=== PATIENT | female | born 1955 | race African-American/Black ===

== ENCOUNTER 2018-01-23 08:36 | Inpatient (IN) ==
[2018-01-23 09:27] LABS: Baso # (Auto) 0.1 th/mm3 (0.0-0.2); Baso % (Auto) 1.1 % (0.0-2.0); Eos # (Auto) 0.2 th/mm3 (0.0-0.4); Eos % (Auto) 1.8 % (0.0-4.0); Hematocrit 39.3 % (35.0-46.0); Hemoglobin 12.5 gm/dL (11.6-15.3); Lymph # (Auto) 1.7 th/mm3 (1.0-4.8); Lymph % (Auto) 17.6 % (9.0-44.0); Mean Corpuscular HGB Conc 31.8 % (32.0-36.0); Mean Corpuscular Hemoglobin 24.5 pg (27.0-34.0); Mean Corpuscular Volume 77.1 fL (80.0-100.0); Mean Platelet Volume 8.3 fL (7.0-11.0); Mono # (Auto) 0.7 th/mm3 (0.0-0.9); Mono % (Auto) 7.8 % (0.0-8.0); Neut # (Auto) 6.8 th/mm3 (1.8-7.7); Neut % (Auto) 71.7 % (16.0-70.0); Platelet Count 348 th/mm3 (150-450); Red Cell Distribution Width 14.2 % (11.6-17.2); White Blood Count 9.5 th/mm3 (4.0-11.0)
[2018-01-23 09:39] LABS: Activated Partial Thrombo Time 25.9 sec (24.3-30.1); Prothrombin Time 10.1 sec (9.8-11.6)
--- NOTE | 2018-01-23 09:42 | ED ---
HPI General Chief Complaint: Chest Pain Stated Complaint: Chest pains Time Seen by Provider: 01/23/18 09:18 Source: patient Mode of arrival: ambulatory Limitations: no limitations History of Present Illness HPI narrative: 62-year-old female complained of chest pain. Patient states that the pain started yesterday. Patient states that the pain is sharp pain started on left chest with radiation to left upper back. Patient states that the pain was intermittent and lasted all day yesterday and resolved completely. Patient states that the pain came back this morning. Patient states that the pain is worse today. Patient states that the pain is worse with deep breathing. Patient has mild dry cough. Patient denies any fever chills. Patient denies any injury to left chest. Patient denies history of CAD or pulmonary problem. Patient has history of hypertension was on medication in the past but not now. Patient denies history of diabetes or hyperlipidemia. Patient is ex-smoker. Patient denies family history of heart disease. On a scale of 1-10 the pain is a 9. MD complaint: chest pain Complete Quality Measures for STEMI Alert Patients STEMI Alert: No Onset (ago): day(s) Duration: intermittent Onset: during rest Pain location: left chest Severity: moderate Severity scale (1-10): 9 Quality: sharp Pain radiation: back Exacerbating factors: nothing Treatments prior to arrival chest pain: none Related Data Home Medications Medication Instructions Recorded Confirmed No Known Home Medications 01/23/18 01/23/18 Allergies Allergy/AdvReac Type Severity Reaction Status Date / Time acetaminophen Allergy Severe SHAKES Verified 01/23/18 09:23 hydrocodone Allergy Severe SHAKES Verified 01/23/18 09:23 Review of Systems Except as stated in HPI: all other systems reviewed are negative PMFSH Medical History Medical History H/O: hysterectomy (Acute) HTN (hypertension) (Acute) Surgical History Surgical History History of tonsillectomy (Acute) Social History Social History Substance History: No History of Abuse Smoking Status: Former smoker How Often Do You Have a Drink Containing Alcohol: Monthly or less Recent Travel in [facility] within the Last 8 Weeks: No Recent Out of Country Travel within the Last 8 Weeks: No Immunization History Tetanus Immunization: Unsure Hx Influenza Vaccine This Season: No Exam Narrative Exam Narrative: GENERAL: Well-nourished, well-developed patient. SKIN: Focused skin assessment warm/dry. HEAD: Normocephalic. EYES: No scleral icterus. No injection or drainage. NECK: Supple, trachea midline. No JVD or lymphadenopathy. CARDIOVASCULAR: Regular rate and rhythm without murmurs, gallops, or rubs. Patient has reproducible left anterior chest wall pain on palpation. No redness no heat no rash noted. RESPIRATORY: Breath sounds equal bilaterally. No accessory muscle use. GASTROINTESTINAL: Abdomen soft, non-tender, nondistended. MUSCULOSKELETAL: No cyanosis, or edema. BACK: Nontender without obvious deformity. No CVA tenderness. Neurologic exam normal. Course Initial Documented Vital Signs Temperature 97.9 F 01/23/18 08:39 Pulse Rate 89 01/23/18 08:39 Respiratory Rate 17 01/23/18 08:39 Blood Pressure 236/114 H 01/23/18 08:39 Pulse Oximetry 100 01/23/18 08:39 Last Documented Vital Signs Temperature 97.9 F 01/23/18 08:39 Pulse Rate 77 01/23/18 11:04 Respiratory Rate 18 01/23/18 11:04 Blood Pressure 239/113 H 01/23/18 11:04 Pulse Oximetry 99 01/23/18 11:04 Medical Decision Making MDM Narrative Medical decision making narrative: 62-year-old female with left-sided chest pain. Atypical chest pain. Sharp stabbing pain with radiation to the back. Differential Diagnosis Differential Diagnosis: Differential diagnosis including musculoskeletal, angina , MS, PE, pneumothorax. Lab Data Lab results reviewed: Yes I reviewed the patient's lab results. Result diagrams: 01/23/18 09:00 01/23/18 09:00 Lab Results 01/23/18 01/23/18 01/23/18 Range/Units 09:00 09:00 09:00 WBC 9.5 (4.0-11.0) th/mm3 RBC 5.10 (4.00-5.30) mil/mm3 Hgb 12.5 (11.6-15.3) gm/dL Hct 39.3 (35.0-46.0) % MCV 77.1 L (80.0-100.0) fL MCH 24.5 L (27.0-34.0) pg MCHC 31.8 L (32.0-36.0) % RDW 14.2 (11.6-17.2) % Plt Count 348 (150-450) th/mm3 MPV 8.3 (7.0-11.0) fL Neut % (Auto) 71.7 H (16.0-70.0) % Lymph % (Auto) 17.6 (9.0-44.0) % Webb % (Auto) 7.8 (0.0-8.0) % Eos % (Auto) 1.8 (0.0-4.0) % Baso % (Auto) 1.1 (0.0-2.0) % Neut # (Auto) 6.8 (1.8-7.7) th/mm3 Lymph # (Auto) 1.7 (1.0-4.8) th/mm3 Webb # (Auto) 0.7 (0.0-0.9) th/mm3 Eos # (Auto) 0.2 (0.0-0.4) th/mm3 Baso # (Auto) 0.1 (0.0-0.2) th/mm3 WBC Differential . Differential Comment Auto diff final PT 10.1 (9.8-11.6) sec INR 1.0 Ratio APTT 25.9 (24.3-30.1) sec Sodium 142 (136-145) meq/L Potassium 3.3 L (3.5-5.1) meq/L Chloride 107 (98-107) meq/L Carbon Dioxide 25.7 (21.0-32.0) meq/L Anion Gap 9 (5-15) meq/L BUN 10 (7-18) mg/dL Creatinine 0.66 (0.50-1.00) mg/dL Estimated GFR Greater than 89 (>89) mL/min Random Glucose 118 H (74-106) mg/dL Calcium 9.0 (8.5-10.1) mg/dL Troponin I 0.26 H (0.02-0.05) ng/mL Imaging Data Attestation: I personally reviewed and interpreted this imaging study as follows : Radiologist's impression: Chest X-Ray 01/23/18 08:43 CONCLUSION: 1. No acute cardiopulmonary disease. Discharge Plan Discharge Disposition Patient Disposition: 30 Still Patient Discharge Details Diagnosis: Acute non-ST elevation myocardial infarction (NSTEMI), Hypokalemia Physicians Team ED Provider: Reji Abdalla Primary Care Provider: Primary Care Physici,Laurie Rxs /Orders / Referrals /Forms Prescriptions: No Action No Known Home Medications RF: 0 Discharge Instructions Patient Printed Instructions: Chest Pain (ED) Discharge Interventions Interventions: Vital Signs Last Done: 01/23/18 11:04 Status ED Status: With Doctor
[2018-01-23 09:45] LABS: Anion Gap 9 meq/L (5-15); Blood Urea Nitrogen 10 mg/dL (7-18); Carbon Dioxide 25.7 meq/L (21.0-32.0); Chloride 107 meq/L (98-107); Glomerular Filtration Rate Greater Than 89 mL/min (>89); Glucose,Random 118 mg/dL (74-106); Potassium 3.3 meq/L (3.5-5.1); Sodium 142 meq/L (136-145)
[2018-01-23 09:49] LABS: Troponin I 0.26 ng/mL (0.02-0.05)
--- NOTE | 2018-01-23 09:53 | XR ---
EXAM DATE: 01/23/2018 9:48 AM EDT AGE/SEX: 62 years / Female INDICATIONS: Chest pain. CLINICAL DATA: This is the patient's initial encounter. Patient reports that signs and symptoms have been present for 2 days and indicates a pain score of 10/10. MEDICAL/SURGICAL HISTORY: None. None. COMPARISON: [facility] [place], CHEST SINGLE AP, 04/02/2012. . FINDINGS: A single AP view of the chest demonstrates the lungs to be symmetrically aerated without evidence of mass, infiltrate or effusion. The cardiomediastinal contours are unremarkable. Osseous structures a re intact. CONCLUSION: 1. No acute cardiopulmonary disease. Electronically signed by: Flako Love MD 01/23/2018 9:52 AM EDT
[2018-01-23] MEDS ORDERED: Heparin 10,000 UNITS/10 ML Vial (for IV use) IV.PUSH STA (11:21)
[2018-01-23] MEDS ORDERED: Heparin Drip 25,000 UNIT/250 ML BAG IV.CONT PRN (11:21)
[2018-01-23] MEDS: Heparin Drip 25,000 UNIT/250 ML BAG IV.CONT PRN (12:30)
--- NOTE | 2018-01-23 12:40 | P.HPIM ---
History of Present Illness Service: [facility] Hospitalist. Primary Care Physician: No Primary Care Physician Chief Complaint: Chest pain History of Present Illness: 62-year-old female with a medical history significant for hypertension who have not been following with physicians for the past couple of years presented to the hospital with complaints of chest pain. Patient reports the chest pain started around 1 PM yesterday. It has been intermittent since then. This morning she woke up with severe and crushing chest pain which prompted the hospital visit. She also had associated nausea and vomiting this morning after she took an Aleve. She is currently chest pain-free. It is worth noting her blood pressure since arriving to the emergency room has been in the 230s/110's. - Diagnosis (1) Uncontrolled hypertension (2) Acute non-ST elevation myocardial infarction (NSTEMI) (3) Hypokalemia Inpatient Certification: I certify that the inpatient services were ordered in accordance with Medicare regulations governing the order. This includes certification that hospital inpatient services are reasonable and necessary and in the case of services not specified as inpatient-only under 42 CFR 419.22(n), that they are appropriately provided as inpatient services in accordance to with the 2-midnight benchmark under 43 CFR 412.3(e) Estimated Total Length of Stay (Days): 2 Plans for Post Hospital Care: Home Review of Systems All other systems reviewed negative except as stated in HPI Cardiovascular: Reports chest pain, Denies fast heart rate, Denies irregular heart rhythm, Denies lightheadedness Respiratory: Denies shortness of breath PMFSH - History History Provided By: Patient - Medical History Medical History: Medical History (Last Reviewed 01/23/18 @ 13:21 by Janel Villatoro MD) H/O: hysterectomy HTN (hypertension) - Surgical History Surgical History: Surgical History (Last Reviewed 01/23/18 @ 13:21 by Janel Villatoro MD) History of tonsillectomy - Family History Family History: Family History (Last Updated 01/23/18 @ 13:22 by Janel Villatoro MD) Mother Family history of hypertension - Tobacco History Smoking Status: Former smoker - Alcohol History How Often Do You Have a Drink Containing Alcohol: Monthly or less - Substance Use History Substance History: No History of Abuse - Travel History Recent Travel in the [place] Within the Last 8 Weeks: No Recent Travel Out of the Country Within the Last 8 Weeks: No - Immunization History Tetanus Immunization: Unsure Hx Influenza Vaccine This Season: No Medications and Allergies Active Medications: Active Medications Clonidine HCl (Catapres) 0.1 mg PO Q6H PRN PRN Reason: SEE LABEL COMMENTS Heparin Sodium/Dextrose (Heparin/D5w 25,000 U/250 Ml) 25,000 unit in 250 mls @ 12 mls/hr IV.CONT TITRATE PRN; Protocol PRN Reason: Per Protocol Last Admin: 01/23/18 12:30 Dose: 1,200 units/hr, 12 mls/hr Lisinopril (Prinivil) 5 mg PO BID HALINA Metoprolol Tartrate (Lopressor) 25 mg PO BID HALINA Nitroglycerin (Nitrostat Sl) 0.4 mg SL Q5M PRN PRN Reason: CHEST PAIN Sodium Chloride (Ns Inj) 2 ml IV.FLUSH BID HALINA Sodium Chloride (Ns Inj) 2 ml IV.FLUSH UNSCH PRN PRN Reason: FLUSH AFTER USING IV ACCESS Allergies Allergy/AdvReac Type Severity Reaction Status Date / Time acetaminophen Allergy Severe SHAKES Verified 01/23/18 09:23 hydrocodone Allergy Severe SHAKES Verified 01/23/18 09:23 Home Medications Medication Instructions Recorded Confirmed Type No Known Home Medications 01/23/18 01/23/18 History Exam Vital signs: Vital Signs 01/23/18 08:39 01/23/18 08:42 01/23/18 11:04 Temperature 97.9 F Pulse Rate 89 77 Respiratory Rate 17 18 18 Blood Pressure 236/114 H 239/113 H Pulse Oximetry 100 99 Intake & Output 01/22/18 01/23/18 01/23/18 18:59 06:59 18:59 Weight 99.79 kg Narrative: CONSTITUTIONAL/GENERAL: This is an adequately nourished patient, in no apparent distress. Vital signs reviewed SKIN: No jaundice, rashes, or concerning lesions. Not diaphoretic. HEAD: Atraumatic. Normocephalic. EYES: Pupils equal and round and reactive. Extra ocular motions are intact. No scleral icterus. No injection or drainage. ENT: Hearing grossly normal. Nose without drainage. Throat without visible erythema, exudates, masses, or lesions. NECK: Trachea midline. Neck is supple, non-tender. No palpable thyroid enlargement or nodularity. CARDIOVASCULAR: Normal rate and regular rhythm without murmurs, gallops, or rubs. No JVD. Peripheral pulses 2+ and symmetric. RESPIRATORY/CHEST: Symmetric, unlabored respirations. Breath sounds equal and clear to auscultation bilaterally. No wheezes, crackles, rales, or rhonchi. GASTROINTESTINAL: Abdomen soft, non-tender, non-distended. No hepato- splenomegaly, or palpable masses. No guarding. Bowel sounds present. MUSCULOSKELETAL: Extremities without clubbing, cyanosis, or edema. No joint tenderness or effusion noted. No calf tenderness. No mottling or clubbing. NEUROLOGICAL: Awake and alert. Motor and sensory grossly within normal limits. Follows commands. Move all extremities spontaneously. No focal deficits. PSYCHIATRIC: No obvious mood problems. No apparent hallucinations or other psychotic thought process. Results - Labs CBC & Chem 7: 01/23/18 09:00 01/23/18 09:00 Labs: Short CBC 01/23/18 Range/Units 09:00 WBC 9.5 (4.0-11.0) th/mm3 Hgb 12.5 (11.6-15.3) gm/dL Hct 39.3 (35.0-46.0) % Plt Count 348 (150-450) th/mm3 BMP 01/23/18 09:00 Sodium 142 Potassium 3.3 L Chloride 107 Carbon Dioxide 25.7 BUN 10 Creatinine 0.66 Calcium 9.0 Cardiac Enzymes 01/23/18 Range/Units 09:00 Troponin I 0.26 H (0.02-0.05) ng/mL - Imaging Impressions Chest X-Ray 01/23/18 08:43 CONCLUSION: 1. No acute cardiopulmonary disease. Caprini VTE Risk Assessment Caprini VTE Risk Assessment: Moderate/High Risk (score >= 2) Caprini Risk Assessment Model: Point Value = 1 Point Value = 2 Point Value = 3 Point Value = 5 Age 41-60 Minor surgery BMI > 25 kg/m2 Swollen legs Varicose veins or History of unexplained or recurrent spontaneous Oral contraceptives or hormone replacement Sepsis (< 1 month) Serious lung disease, including pneumonia (< 1 month) Abnormal pulmonary function Acute myocardial infarction Congestive heart failure (< 1 month) History of inflammatory bowel disease Medical patient at bed rest Age 61-74 Arthroscopic surgery Major open surgery (> 45 min) Laparoscopic surgery (> 45 min) Malignancy Confined to bed (> 72 hours) Immobilizing plaster cast Central venous access Age >= 75 History of VTE Family history of VTE Factor V Leiden Prothrombin [id number] Lupus anticoagulant Anticardiolipin antibodies Elevated serum homocysteine Heparin-induced thrombocytopenia Other congenital or acquired thrombophilia Stroke (< 1 month) Elective arthroplasty Hip, pelvis, or leg fracture Acute spinal cord injury (< 1 month) Prophylaxis Regimen: Total Risk Factor Score Risk Level Prophylaxis Regimen 0-1 Low Early ambulation 2 Moderate Order ONE of the following: *Sequential Compression Device (SCD) *Heparin 5000 units SQ BID 3-4 Higher Order ONE of the following medications: *Heparin 5000 units SQ TID *Enoxaparin/Lovenox 40 mg SQ daily (WT < 150 kg, CrCl > 30 mL/min) *Enoxaparin/Lovenox 30 mg SQ daily (WT < 150 kg, CrCl > 10-29 mL/min) *Enoxaparin/Lovenox 30 mg SQ BID (WT < 150 kg, CrCl > 30 mL/min) AND/OR *Sequential Compression Device (SCD) 5 or more Highest Order ONE of the following medications: *Heparin 5000 units SQ TID (Preferred with Epidurals) *Enoxaparin/Lovenox 40 mg SQ daily (WT < 150 kg, CrCl > 30 mL/min) *Enoxaparin/Lovenox 30 mg SQ daily (WT < 150 kg, CrCl > 10-29 mL/min) *Enoxaparin/Lovenox 30 mg SQ BID (WT < 150 kg, CrCl > 30 mL/min) AND *Sequential Compression Device (SCD) Assessment and Plan - Assessment (1) Uncontrolled hypertension Code(s): I10 - Essential (primary) hypertension Status: Acute (2) Acute non-ST elevation myocardial infarction (NSTEMI) Code(s): I21.4 - Non-ST elevation (NSTEMI) myocardial infarction Status: Acute (3) Hypokalemia Code(s): E87.6 - Hypokalemia Status: Acute - Plan 62-year-old female with uncontrolled/untreated hypertension present with NSTEMI NSTEMI: - Cardiology on board. KENDALL Cabrera - On heparin drip per protocol - Add beta-florinda and lisinopril. Check lipids - Nitro as needed -Plan for heart catheterization in the morning. Uncontrolled/untreated hypertension: BP 230's/110's in the ED -Started on metoprolol 25 mg twice daily and lisinopril 5 mg twice daily. - Clonidine PRN. Follow trend and adjust as needed. Hypokalemia: -Replace and monitor. Check mag GI prophylaxis: Stool softener PRN constipation. DVT PPx: On Heparin
[2018-01-23] MEDS ORDERED: Metoprolol Tartrate 25 MG Tablet PO SCH (12:45)
--- NOTE | 2018-01-23 13:47 | ECG ---
Date Performed: 01/23/2018 Time Performed: 08:47:48 PTAGE: 62 years EKG: Sinus rhythm MINIMAL VOLTAGE CRITERIA FOR LVH, CONSIDER NORMAL VARIANT BORDERLINE ECG Since the PREVIOUS TRACING , no significant change noted PREVIOUS TRACIN01/29/2013 02.39 DOCTOR: Kobe Peterson Interpretating Date/Time 01/23/2018 13:45:37
--- NOTE | 2018-01-23 14:06 | MB ---
cc: Baltazar Cabrera MD DATE: 01/23/2018 HISTORY OF PRESENT ILLNESS: Sheryl is a very pleasant 62-year-old lady with history of hypertension, who developed chest pain 1 day prior to admission. She said the chest pain was severe. Her blood pressure was severely elevated on admission at 249 systolic. She currently is chest pain free. Denies any fever, chills, cough, GI or bleeding, PND, orthopnea, syncope or dizziness. PAST MEDICAL HISTORY: Per history of present illness. Also has a history of a hysterectomy. ALLERGIES: ACETAMINOPHEN AND HYDROCODONE. SOCIAL HISTORY: She is a former smoker, rarely drinks alcohol. MEDICATIONS IN THE HOSPITAL: 1. Aspirin 325 daily. 2. Clonidine 0.1 every 6 hours p.r.n. 3. Heparin bolus and drip. 4. Lisinopril 5 mg b.i.d. 5. Metoprolol 25 b.i.d. 6. Potassium chloride supplementation. PHYSICAL EXAMINATION: VITAL SIGNS: Initial blood pressure 236/114, currently 241/116; pulse 79, respiratory rate 17, temperature 97.9, saturations 100% on room air. GENERAL: She is alert and oriented x 3, in no acute distress. NECK: Supple. No JVD. No bruit. CARDIOVASCULAR: S1, S2. No murmurs, rubs, gallops. LUNGS: Clear to auscultation bilaterally. ABDOMEN: Soft, nontender, nondistended with positive bowel sounds. EXTREMITIES: No lower extremity edema. DIAGNOSTIC STUDIES: Chest x-ray: No acute cardiopulmonary disease. EKG: Normal sinus rhythm at 80 beats per minute. No ST-T wave changes. Labs: White count 9.5, hemoglobin 12.5, hematocrit 39.3, platelet count 348. INR 1.0. Sodium 142, potassium 3.3, chloride 107, bicarbonate 25.7, BUN 10, creatinine 0.66, glucose 118. Troponin is 0.26. DIAGNOSES: 1. Non-ST elevation myocardial infarction. 2. Hypertension. 3. Hypokalemia. 4. Microcytosis. DISCUSSION: I suspect her troponin elevation is secondary to increased demand from severely elevated blood pressure. We will need to lower her blood pressure cautiously in order to avoid precipitating any cerebrovascular events from shifted cerebral autoregulation curve. I recommended left heart catheterization; however, will need to have her blood pressure controlled prior to proceeding. Discussed with Dr. Villatoro at the bedside with the patient. MD HERMAN Waite/ASTON , 01:46 PM , 01:53 PM
[2018-01-23] MEDS: Lisinopril 5 MG Tablet PO SCH ×2 (14:39→21:02)
[2018-01-23] MEDS: Metoprolol Tartrate 25 MG Tablet PO SCH ×2 (14:40→21:02)
[2018-01-23] MEDS ORDERED: Potassium Chlor 20 mEq Premix 20 MEQ/100 ML PIGGYBACK IV.SIG SCH (15:00)
[2018-01-23 18:30] LABS: Troponin I 0.6 ng/mL (0.02-0.05)
[2018-01-23 21:33] LABS: Troponin I 0.87 ng/mL (0.02-0.05)
[2018-01-24] MEDS: Heparin Drip 25,000 UNIT/250 ML BAG IV.CONT PRN (00:15)
[2018-01-24 01:23] LABS: Troponin I 0.51 ng/mL (0.02-0.05)
[2018-01-24 07:34] LABS: Anion Gap 9 meq/L (5-15); Blood Urea Nitrogen 13 mg/dL (7-18); Calcium 8.8 mg/dL (8.5-10.1); Carbon Dioxide 25.8 meq/L (21.0-32.0); Chloride 108 meq/L (98-107); Glomerular Filtration Rate Greater Than 89 mL/min (>89); Glucose,Random 84 mg/dL (74-106); Potassium 3.5 meq/L (3.5-5.1); Sodium 143 meq/L (136-145)
[2018-01-24 07:35] LABS: Cholesterol 122 mg/dL (120-200); Triglycerides 86 mg/dL (42-150)
[2018-01-24 07:37] LABS: Chol/HDL Ratio 2.55 Ratio; HDL Cholesterol 47.8 mg/dL (40.0-60.0); LDL Cholesterol,Calculated 57 mg/dL (0-99)
--- NOTE | 2018-01-24 08:36 | ECG ---
Date Performed: 01/24/2018 Time Performed: 00:06:44 PTAGE: 62 years EKG: Sinus rhythm Normal ECG PREVIOUS TRACING : 01/23/2018 16.35 No significant change from previous tracing noted. DOCTOR: Anirudh Conde Interpretating Date/Time 01/24/2018 08:35:31
[2018-01-24] MEDS: Metoprolol Tartrate 25 MG Tablet PO SCH ×2 (08:42→21:15)
[2018-01-24] MEDS: Lisinopril 5 MG Tablet PO SCH ×2 (08:42→21:15)
--- NOTE | 2018-01-24 08:49 | ECG ---
Date Performed: 01/23/2018 Time Performed: 16:35:41 PTAGE: 62 years EKG: SINUS BRADYCARDIA VOLTAGE CRITERIA FOR LVH ABNORMAL ECG PREVIOUS TRACING : 01/23/2018 08.47 No significant change from previous tracing noted. DOCTOR: Anirudh Conde Interpretating Date/Time 01/24/2018 08:47:15
[2018-01-24] MEDS ORDERED: Aspirin 325 MG Tablet PO SCH (09:00)
[2018-01-24] MEDS ORDERED: Heparin/NS PF Inj 1,000 ML ONE (09:36)
[2018-01-24] MEDS ORDERED: fentaNYL Citrate Inj 100 MCG/2 ML Ampul ONE (09:52)
--- NOTE | 2018-01-24 10:26 | CATHPROC ---
scenios HIS Report Study Information Study Number Admission Scheduled Start Study Start [id number] Jan 23 2018 12:23PM 01/24/2018 Jan 24 2018 9:34AM [place] [facility] Cardiac Catheterization Admit Source Facility Department Other [facility] [employer] Physician and Clinical Staff Initial Baltazar Stephenson Child Day Care Provider Toby Kee,RN Other cathlab, cathlab Recorder Ramakrishna Rendon RCIS(BS) Scrub Brittni Bedolla,RT(R) Procedures Performed Procedure Location (Site) Vessel Name Coronary Angiograms LCA Left Coronary Coronary Angiograms RCA Right Coronary L Heart Cath LV Gram-hand inj. LV LV Ventricle PTCA DIAG2 Mid Left Coronary Stent DIAG2 Mid Left Coronary Wire insertion Fem Art (right) Femoral Art Equipment Time Depalletizer Operator Description Size Mfg Part Number Used/Scraped [id number] 10:01 [employer] CRITICAL CARE WIRE, ASAHI PROWATER 180CM 180CM Used *[id number] TRANSDUCER, TRUWAVE [id number] 09:38 LONGO GONZALES * Used W/STOCKCOCK *[id number] 538-420 *[id number] 538-421 *[id number] 09:38 [employer],WARM AIR CCL * Used *[id number] 09:38 [employer] I[employer] PACK, CCL CUSTOM * Used *[id number] 09:38 [employer] PACER PEN, SKIN DUAL W/ RULER * Used *[id number] 10:05 [employer] BALLOON, 2.0 X 6MM EUPHORA 6MM Used *[id number] 10:12 [employer] STENT, 2.5 8 INTEGRITY 2.5 8 Used *[id number] 10:03 [employer]/AVE EBU 3.5 Z2 GUIDE CATHETER FR 6 Used *[id number] 10:03 [employer] MEDICAL 30 NADIA INDEFLATOR Used *[id number] 10:01 [employer] MEDICAL SHEATH, FR6.5 PRELUDE 11CM FR 6.5 038ACT Used *[id number] 09:38 GTRAN WIRE, 3MMJ .035 180CM 180CM Used *[id number] 09:38 NAMIC MANIFOLD, 4 PORT * Used *[id number] 09:38 [employer] OMNIPAQUE, 350 MG, 150ML 150ML [id number] Used [id number] 09:38 [employer] MEDICAL SHEATH, FR4 TERUMO (10CM) FR 4 Used *[id number] History: Current Medications Medication Dosage/Unit Route Frequency Last Date/Time Taken ASA LOPRESSOR History: Allergies Allergy Reaction hydrocodone SHAKES acetaminophen SHAKES History: Risk Factors Hypertension Yes History: Symptoms/Diagnosis Selection Items Chest pain History: Stress Tests Stress or Imaging Studies Performed No History: Other Disease Selection Items HTN History: Other Current Smoker No Labs Hgb (g/dl) Hct (%) WBC (l/cumm) Platelets (thousands) 11.60-17.00 35.00-51.00 4.00-11.00 150.00-450.00 12.5 39.3 9.5 348 Glucose (mg/dl) BUN (mg/dl) Creatinine (mg/dl) BUN:Creatinine (1:x) 74.00-106.00 7.00-18.00 0.50-1.30 10.00-20.00 84 13 0.6 21.7 Na (meq/l) K (meq/l) 136.00-145.00 3.50-5.10 143 3.5 INR (PTT:PT) 0.90-1.10 1 Troponin I (ng/ml) CPK-MB (ng/ML) 0.02-0.05 0.50-3.60 0.51 Not Drawn Medication Medication Total Dose (Bolus/Oral) Medication Total Dosage/Unit 1% XYLOCAINE 20 mL FENTANYL 25 mcg HEPARIN 7600 units PLAVIX 600 mg VERSED 1 mg Medications (Bolus/Oral) Medication Time Given Dosage/Unit Administered By Reason 1% XYLOCAINE 01/24/2018 9:51:29 AM 20 mL cathlab, cathlab 20 mL 1% XYLOCAINE given in lab by cathlab, cathlab in Right Groin via Subcutaneous. Ordered by Baltazar Mayes. VERSED 01/24/2018 9:52:05 AM 1 mg Chilango, Toby 1 mg VERSED given in lab by Toby Kee RN in Left Antecubital via Peripheral IV. Ordered by Baltazar Fuchs. FENTANYL 01/24/2018 9:53:31 AM 25 mcg Chilango, Toby 25 mcg FENTANYL given in lab by Toby Kee RN in Left Antecubital via Peripheral IV. Ordered by Baltazar Rose. HEPARIN 01/24/2018 10:01:29 AM 7600 units Toby Kee 7600 units HEPARIN given in lab by Toby Kee RN in Left Antecubital via Peripheral IV. Ordered by Baltazar Cabrera. PLAVIX 01/24/2018 10:23:06 AM 600 mg Toby Kee 600 mg PLAVIX given in lab by Toby Kee RN via Oral. Ordered by Baltazar Cabrera. Medication (Drip) Medication Time Given Dosage/Unit Concentration/Unit Diluent (ml) Solutio n IV Solutions 01/24/2018 9:34:37 AM 0 mL (IV) 250 NaCl .9 Patient arrived on IV Solutions given by cathlab, cathlab in Left Antecubital via Peripheral IV. Pump /Drip Flow = 20 ml/hr using NaCl .9. Ordered by Baltazar Cabrera. Initial Case Assessment Cardiovascular HR Rhythm NIBP Chest Pain 70 nsr 179/93 0 Edema Present Skin color Skin None Normal Warm Dry Circulatory - Right Pulses Dorsalis Pedis Femoral 1 1 Scale (0,1,2,3,4,d) Circulatory - Left Pulses Dorsalis Pedis Femoral 1 1 Scale (0,1,2,3,4,d) Neurological State Oriented to time-place- Alert Moves all extremities person Respiration - General Respiration Rate SpO2 (%) (B/min) 15 100 Final Case Assessment Cardiovascular HR Rhythm NIBP Chest Pain 62 nsr 168/81 0 Edema Present Skin color Skin None Normal Warm Dry Circulatory - Right Pulses Dorsalis Pedis Femoral 1 1 Scale (0,1,2,3,4,d) Circulatory - Left Pulses Dorsalis Pedis Femoral 1 1 Scale (0,1,2,3,4,d) Neurological State Oriented to time-place- Alert Moves all extremities person Respiration - General Respiration Rate SpO2 (%) (B/min) 15 100 Chronological Log Time Study Chronological Log 9:34:21 Patient arrived via Bed. 9:34:21 Patient Name, D.O.B, / Armband Verified By R.N. 9:34:22 Consent signed by the physician and the patient and verified by the [employer] staff. 9:34:22 Pre-op and post- op instructions given; patient acknowledges understanding of instructions. 9:34:29 Presedation assessment performed by [employer] RN. 9:34:32 Patient has been NPO for Less than 6Hrs. 9:34:33 Skin Breakdown- NONE PER PATIENT 9:34:34 Patient Warmer Placed on the Table. 9:34:35 Kassidy Prominences Protected 9:34:37 A # 20 IV was noted in the Antecubital (left). Grade = 0 Patient arrived on IV Solutions given by cathlab, cathlab in Left Antecubital via Peripheral IV . Pump/Drip Flow = 20 9:34:37 ml/hr using NaCl .9. Ordered by Baltazar Cabrera. 9:35:00 History and physical on the chart or being dictated. Vitals capture started with the following parameters, Patient=Adult, Interval=5 min, Initial Pr ywpuqx=683 mmHg, 9:36:32 Deflation Rate=5 mmHg, Cuff placed on Left Arm 9:38:29 HR=66 bpm, CXSY=426/93 mmhg, XmG2=500.0 %, Resp=15 B/min, Pain=0, Guerita=10, Power=2 9:39:09 History and physical on the chart or being dictated. 9:39:42 Reference ECG taken Assessment: Initial Case, HR=70 BPM, Rhythm=nsr, VMFA=159/93 mmhg, Chest Pain=0, Edema=None, [place]=Normal, Skin = Warm, Dry Right Pulses: Kayden Ped=1, Femoral=1 9:41:06 Left Pulses: Kayden Ped=1, Femoral=1 Neurological: State=Alert, Ox3, WALL Respiration: Resp=15 B/min, FaB7=272 % 9:42:15 Bilateral groins prepped with 2% chlorhexidine, and draped after a 3 minute waiting time. 9:42:29 HR=70 bpm, VTTE=635/94 mmhg, SpO2=98.0 %, Pain=0, Guerita=10, Power=2 9:47:20 MD paged 9:47:30 HR=65 bpm, CHMQ=191/83 mmhg, SmC8=451.0 %, Resp=14 B/min, Pain=0, Guerita=10, Power=2 9:47:57 Pressure channel 1 zeroed. 9:48:35 MD arrived. 9:48:46 Contrast Scanned 9:48:48 Immediate Presedation assesment performed by physician. Time Out. Correct patient, correct procedure, correct physician, labs, allergies, and equipment verified with labor and delivery nurse 9:51:21 team present. Fire risk assesment completed (see hard stop sheet for coding). Time Out Concu rred by MD and individual staff in procedure. 9::29 Case Start 9::29 20 mL 1% XYLOCAINE given in lab by jennifer rodriguez in Right Groin via Subcutaneous. Ordered by Baltazar Cabrera. 9:52:05 1 mg VERSED given in lab by Toby Kee, RN in Left Antecubital via Peripheral IV. Ordered by Baltazar Cabrera. 9:52:17 Access site was Right Femoral Artery. 9:52:22 A SHEATH, FR4 TERUMO (10CM) FR 4 was advanced into the Fem Art (right) using the Percutaneou s technique. 9:52:29 HR=62 bpm, DRSV=552/89 mmhg, FzP4=418.0 %, Resp=14 B/min, Pain=0, Guerita=10, Power=2 9:53:04 Activated Clotting Time Drawn A JR 4.0 INFINITI CATHETER FR 4 was advanced over a wire. OMNIPAQUE, 350 MG, 150ML 150ML was us ed for 9:53:10 injections. 9:53:31 25 mcg FENTANYL given in lab by Toby Kee, RN in Left Antecubital via Peripheral IV. Orde red by Baltazar Cabrera. 9:55:20 The LV was manually injected with 10 cc's and visualized. OMNIPAQUE, 350 MG, 150ML 150ML use d. 9:56:15 Pressure channel 1 zeroed. Recorded Pressure: Ao, HR=69, Condition=Condition 1 9:56:30 (Aorta) Ao 164/76/112 9:56:51 The RCA was injected and visualized at various angles. OMNIPAQUE, 350 MG, 150ML 150ML used. 9:57:31 Catheter was removed 9:57:32 HR=71 bpm, NSFQ=048/77 mmhg, SpO2=97.0 %, Resp=14 B/min, Pain=0, Guerita=10, Power=2 A JL 4.0 INFINITI CATHETER FR 4 was advanced over a wire. OMNIPAQUE, 350 MG, 150ML 150ML was us ed for 9:58:12 injections. 9:58:49 The LCA was injected and visualized at various angles. OMNIPAQUE, 350 MG, 150ML 150ML used. 9:59:44 Catheter was removed 7600 units HEPARIN given in lab by Toby Kee, RN in Left Antecubital via Peripheral IV. Orde red by Rick, 10:01:29 Baltazar. A SHEATH, FR6.5 PRELUDE 11CM FR 6.5 was exchanged in the Fem Art (right). This was necessary in order to 10:02:26 accomodate a larger catheter. 10:03:22 HR=64 bpm, JACF=103/75 mmhg, SpO2=98.0 %, Resp=15 B/min, Pain=0, Guerita=10, Power=2 A EBU 3.5 Z2 GUIDE CATHETER FR 6 was advanced over a wire. OMNIPAQUE, 350 MG, 150ML 150ML was u sed for 10:04:25 injections. 10:04:33 A WIRE, ASAHI PROWATER 180CM 180CM was inserted via Fem Art (right). 10:06:57 Interventional wire has crossed the lesion 10:07:30 HR=66 bpm, AEEY=941/76 mmhg, SpO2=98.0 %, Resp=14 B/min, Pain=0, Guerita=10, Power=2 10:07:58 Activated Clotting Time Drawn A BALLOON, 2.0 X 6MM EUPHORA 6MM was inserted over WIRE, ASAHI PROWATER 180CM 180CM via the Fem Art 10:09:01 (right). A BALLOON, 2.0 X 6MM EUPHORA 6MM over a WIRE, ASAHI PROWATER 180CM 180CM in the DIAG2 Mid was i nflated 10:09:13 using a 30 NADIA INDEFLATOR at 8 nadia for 20 sec. A BALLOON, 2.0 X 6MM EUPHORA 6MM over a WIRE, ASAHI PROWATER 180CM 180CM in the DIAG2 Mid was i nflated 10:09:28 using a 30 NADIA INDEFLATOR at 8 nadia for 20 sec. A BALLOON, 2.0 X 6MM EUPHORA 6MM over a WIRE, ASAHI PROWATER 180CM 180CM in the DIAG2 Mid was i nflated 10:10:11 using a 30 NADIA INDEFLATOR at 10 nadia for 20 sec. A BALLOON, 2.0 X 6MM EUPHORA 6MM over a WIRE, ASAHI PROWATER 180CM 180CM in the DIAG2 Mid was i nflated 10:11:10 using a 30 NADIA INDEFLATOR at 10 nadia for 15 sec. 10:11:51 Balloon Removed. An STENT, 2.5 8 INTEGRITY 2.5 8 Bare Metal Stent was inserted through a EBU 3.5 Z2 GUIDE CATHET ER FR 6 over a 10:12:56 WIRE, ASAHI PROWATER 180CM 180CM. 10:13:18 ACT (Normal Range 90-180) = 278 10:13:23 HR=64 bpm, TJYR=437/81 mmhg, SpO2=98.0 %, Resp=15 B/min, Pain=0, Guerita=10, Power=2 A STENT, 2.5 8 INTEGRITY 2.5 8 was deployed using a 30 NADIA INDEFLATOR at 12 atmospheres for 30 seconds in the 10:14:11 DIAG2 Mid. 10:15:24 Delivery device removed 10:15:28 Wire removed 10:15:38 Catheter was removed 10:15:41 Case End (Physician broke scrub) Assessment: Final Case, HR=62 BPM, Rhythm=nsr, CWRC=124/81 mmhg, Chest Pain=0, Edema=None, [place] r=Normal, Skin = Warm, Dry Right Pulses: Kayden Ped=1, Femoral=1 10:15:48 Left Pulses: Kayden Ped=1, Femoral=1 Neurological: State=Alert, Ox3, WALL Respiration: Resp=15 B/min, RbQ2=170 % 10:16:51 In the Fem Art (right) the SHEATH, FR6.5 PRELUDE 11CM FR 6.[address] by Brittni Bedolla RT(R). 10:17:02 Sterile dressing applied to site 10:17:03 No case complications noted. 10:17:04 Cine recording checked. 10:17:24 Bedside Report will be given. 10:17:26 Implantable Device card placed in patient's chart. 10:17:29 A Left Heart Cath was performed. 10:17:34 HR=60 bpm, HVPN=159/81 mmhg, SpO2=99.0 %, Pain=0, Guerita=10, Power=2 10:21:26 Vitals capture stopped. 10:23:06 600 mg PLAVIX given in lab by Toby Kee RN via Oral. Ordered by Baltazar Cabrera. 10:24:55 Patient moved to [facility] [place] End Study - Contrast Media Used In Study Contrast Total Opened (mL) Total Used (mL) Total Wasted (mL) Omnipaque 100 100 0 End Study - Maximum Contrast Load Max Contrast Load (mL) 904.2 End Study - Radiation Exposure Fluoro Time (minutes) 6.8 End Study - Patient Disposition Complications Transferred To Interventional Outcome No Telemetry Bed successful
[2018-01-24] MEDS ORDERED: Misc Info for Pharmacy OTHER STA (10:29)
[2018-01-24] MEDS ORDERED: Iohexol 350 MG/ML 100 ML Vial (for Cath Lab) IVCONTRAST ONE (10:44)
--- NOTE | 2018-01-24 10:46 | MA ---
cc: Baltazar Cabrera MD DATE: 01/24/2018 PROCEDURE: Left heart catheterization, left ventriculography, coronary angiography and PCI with bare metal stent of the mid first diagonal artery. INDICATIONS FOR PROCEDURE: Non-STEMI, coronary artery disease. PROCEDURE: The patient was brought to the cardiac catheterization laboratory, prepped and draped in the usual sterile fashion. 10 mL of 1% lidocaine was used to locally anesthetize the right common femoral artery. A 4-Lebanese sheath was placed in the right common femoral artery. 4-Lebanese JR4 and JL4 catheters were used to perform left and right coronary angiography, left ventriculography. FINDINGS: LV pressures were not obtained as the pressure waveforms were dampened due to obstructed line off the table. The patient had frequent ectopy, so we did left ventriculography and removed the catheter. EF was approximately 55%. The right coronary artery is dominant, has mild disease in the mid-segment up to 20% angiographically. Also, 10-20% disease in the proximal segment. The left main coronary artery is large, probably a 6 mm reference vessel diameter. No significant disease angiographically. Left circumflex vessel has no significant disease angiographically. There is a high obtuse marginal vessel which is a 2.5 mm vessel with no significant obstructive disease. The second obtuse marginal vessel is a 3.5 mm vessel; it comes off the mid to distal AV groove-left circumflex, very tortuous in the mid to distal segment. No significant disease angiographically. The remainder of the AV groove-left circumflex supplies two small distal posterolateral arteries, which are 1 mm vessels with no significant disease angiographically. The LAD is transapical. There is a 40-50% stenosis in the mid-segment. The first diagonal artery is a medium-sized vessel, which has a 95% mid-stenosis. Reference vessel diameter proximally is 3 mm. At the lesion site, it is approximately 2.5 mm. A 6-Lebanese sheath was exchanged for a 4-Lebanese sheath. The patient's baseline ACT was 143. We gave her 70 units/kg of heparin with an ACT of 273. Used a 6-Lebanese XB 3.5 guide, 0.014 Prowater wire to cross the lesion, predilated the lesion with a 2.0/6 Euphora balloon to 3 inflations of up to 8 atmospheres up to 20 seconds. I then deployed a 2.5/8 Integrity stent at the lesion site, 1 inflation at 12 atmospheres for 20 seconds. Note: There was slight under deployment of the distal segment of the stent at 12 atmospheres. I did not feel comfortable further deploying the stent as at that segment of the vessel, the 2.5 stent was slightly oversized. Stenosis went from 95% to 0% with JOSESITO 3 flow. CONCLUSIONS: 1. [id number]-lskrrbray myocardial infarction, culprit 95% mid-first diagonal artery stenosis, as detailed above. Otherwise mild to moderate three-vessel coronary artery disease in a right dominant system. 2. Normal left ventricular systolic function, ejection fraction 55%. 3. Recommend aspirin 162 mg daily, Plavix 600 mg p.o. load, then 75 mg a day for 12-15 months. Treat lipids to NCEP guidelines. Beta florinda and ABHAY inhibitors as clinically tolerated. MD HERMAN Waite/YAMILA , 10:23 AM , 10:32 AM
[2018-01-24] MEDS ORDERED: Heparin 10,000 UNITS/10 ML Vial (for IV use) ONE (11:01)
[2018-01-24 11:19] LABS: Baso # (Auto) 0.1 th/mm3 (0.0-0.2); Baso % (Auto) 1.1 % (0.0-2.0); Eos # (Auto) 0.3 th/mm3 (0.0-0.4); Eos % (Auto) 4.1 % (0.0-4.0); Hematocrit 33.7 % (35.0-46.0); Hemoglobin 10.7 gm/dL (11.6-15.3); Lymph # (Auto) 2.1 th/mm3 (1.0-4.8); Lymph % (Auto) 26.6 % (9.0-44.0); Mean Corpuscular HGB Conc 31.8 % (32.0-36.0); Mean Corpuscular Hemoglobin 24.5 pg (27.0-34.0); Mean Corpuscular Volume 77.2 fL (80.0-100.0); Mean Platelet Volume 8.5 fL (7.0-11.0); Mono # (Auto) 0.7 th/mm3 (0.0-0.9); Mono % (Auto) 9.1 % (0.0-8.0); Neut # (Auto) 4.6 th/mm3 (1.8-7.7); Neut % (Auto) 59.1 % (16.0-70.0); Platelet Count 310 th/mm3 (150-450); Red Blood Count 4.37 mil/mm3 (4.00-5.30); Red Cell Distribution Width 13.4 % (11.6-17.2); White Blood Count 7.7 th/mm3 (4.0-11.0)
[2018-01-24 11:40] LABS: Anion Gap 9 meq/L (5-15); Aspartate Aminotransferase 25 U/L (15-37); Blood Urea Nitrogen 12 mg/dL (7-18); Calcium 8.5 mg/dL (8.5-10.1); Carbon Dioxide 23.6 meq/L (21.0-32.0); Chloride 107 meq/L (98-107); Glomerular Filtration Rate Greater Than 89 mL/min (>89); Glucose,Random 83 mg/dL (74-106); Magnesium 1.6 mg/dL (1.5-2.5); Potassium 3.3 meq/L (3.5-5.1); Sodium 140 meq/L (136-145)
[2018-01-24 11:41] LABS: Alanine Aminotransferase 21 U/L (10-53); Phosphorus 3.3 mg/dL (2.5-4.9)
[2018-01-24 11:43] LABS: Alkaline Phosphatase 56 U/L (45-117); Total Protein 6.2 g/dL (6.4-8.2)
--- NOTE | 2018-01-24 14:29 | P.PNIM ---
Subjective Interval history: 62-year-old female with a medical history significant for hypertension who have not been following with physicians for the past couple of years presented to the hospital with complaints of chest pain. Patient reports the chest pain started around 1 PM yesterday. It has been intermittent since then. This morning she woke up with severe and crushing chest pain which prompted the hospital visit. She also had associated nausea and vomiting this morning after she took an Aleve. She is currently chest pain-free. It is worth noting her blood pressure since arriving to the emergency room has been in the 230s/110's. 8-3 had cardiac catheterization with Dr. Cabrera had a bare-metal stent placed today We will get a.m. labs We will need to go home on aspirin and Plavix and statin We will need to get her blood pressure under better control Physical Exam Vital signs: Vital Signs 01/23/18 15:18 01/23/18 16:00 01/23/18 18:29 Temperature Pulse Rate 78 78 78 Respiratory Rate 16 17 17 Blood Pressure 217/102 H 191/92 H 151/80 H Pulse Oximetry 98 98 97 01/23/18 20:24 01/23/18 20:44 01/23/18 21:00 Temperature Pulse Rate 62 70 Respiratory Rate 16 18 Blood Pressure 140/78 140/71 174/90 H Pulse Oximetry 100 01/23/18 22:00 01/23/18 23:00 01/24/18 00:00 Temperature Pulse Rate 66 62 64 Respiratory Rate 16 Blood Pressure 134/77 Pulse Oximetry 100 01/24/18 01:00 01/24/18 02:00 01/24/18 02:09 Temperature Pulse Rate 62 64 Respiratory Rate 18 Blood Pressure Pulse Oximetry 01/24/18 03:00 01/24/18 04:00 01/24/18 07:00 Temperature Pulse Rate 64 65 77 Respiratory Rate 16 Blood Pressure 148/80 H Pulse Oximetry 100 01/24/18 08:00 01/24/18 11:00 01/24/18 12:00 Temperature 98.1 F 98.0 F Pulse Rate 85 65 63 Respiratory Rate 18 16 Blood Pressure 146/85 H 176/79 H Pulse Oximetry 100 98 01/24/18 13:00 01/24/18 14:00 Temperature Pulse Rate 76 79 Respiratory Rate Blood Pressure Pulse Oximetry Intake & Output 01/23/18 01/24/18 01/24/18 18:59 06:59 18:59 Intake Total 490 / 490 255 / 255 Output Total 200 / 200 Balance 290 / 290 255 / 255 Weight 99.79 kg 108.5 kg Intake: IV 250 / 250 255 / 255 Heparin/NS PF Inj 1,000 ML @ 0 5 / 5 mls/hr .ROUTE .STK-MED ONE Rx#: [id number] Heparin/D5W 25,000 U/250 mL 25, 250 / 250 250 / 250 000 unit In 250 ml @ 1,200 UNITS/HR 12 mls/hr IV.CONT TITRATE PRN Rx#:[id number] Oral 240 / 240 Output: Urine 200 / 200 Other: Date of Last Bowel Movement 01/23/18 01/23/18 # Bowel Movements 1 Narrative: GENERAL: Awake alert and oriented times 3 --talkative and cooperative SKIN: Warm and dry. HEAD: Atraumatic. Normocephalic. EYES: Pupils equal and round. No scleral icterus. No injection or drainage. ENT: No nasal bleeding or discharge. Mucous membranes pink and moist. NECK: Trachea midline. No JVD. CARDIOVASCULAR: Regular rate and rhythm. S1-S2 no S3 or S4 RESPIRATORY: No accessory muscle use. Clear to auscultation. Breath sounds equal bilaterally. GASTROINTESTINAL: Abdomen soft, non-tender, nondistended. Hepatic and splenic margins not palpable. Obese MUSCULOSKELETAL: Extremities without clubbing, cyanosis, or edema. No obvious deformities. NEUROLOGICAL: Awake and alert. No obvious cranial nerve deficits. Motor grossly within normal limits. Five out of 5 muscle strength in the arms and legs. Normal speech. PSYCHIATRIC: Appropriate mood and affect; insight and judgment normal. Results - Labs CBC & Chem 7: 01/24/18 10:10 01/24/18 10:10 Laboratory Results - last 24 hr 01/23/18 01/23/18 01/23/18 09:00 15:45 18:30 WBC RBC Hgb Hct MCV MCH MCHC RDW Plt Count MPV Neut % (Auto) Lymph % (Auto) [place] % (Auto) Eos % (Auto) Baso % (Auto) Neut # (Auto) Lymph # (Auto) [place] # (Auto) Eos # (Auto) Baso # (Auto) WBC Differential Differential Comment APTT 128.4 H* D Sodium Potassium Chloride Carbon Dioxide Anion Gap BUN Creatinine Estimated GFR Random Glucose Calcium Phosphorus Magnesium 1.6 Total Bilirubin AST ALT Alkaline Phosphatase Total Creatine Kinase 92 Troponin I 0.60 H D Total Protein Albumin Triglycerides Cholesterol LDL Cholesterol, Calc HDL Cholesterol Cholesterol/HDL Ratio TSH Free T4 01/23/18 01/23/18 01/24/18 19:56 22:20 00:43 WBC RBC Hgb Hct MCV MCH MCHC RDW Plt Count MPV Neut % (Auto) Lymph % (Auto) [place] % (Auto) Eos % (Auto) Baso % (Auto) Neut # (Auto) Lymph # (Auto) [place] # (Auto) Eos # (Auto) Baso # (Auto) WBC Differential Differential Comment APTT 26.6 D Sodium Potassium Chloride Carbon Dioxide Anion Gap BUN Creatinine Estimated GFR Random Glucose Calcium Phosphorus Magnesium Total Bilirubin AST ALT Alkaline Phosphatase Total Creatine Kinase 62 58 Troponin I 0.87 H* D 0.51 H D Total Protein Albumin Triglycerides Cholesterol LDL Cholesterol, Calc HDL Cholesterol Cholesterol/HDL Ratio TSH Free T4 01/24/18 01/24/18 01/24/18 05:50 09:09 10:10 WBC 7.7 RBC 4.37 Hgb 10.7 L Hct 33.7 L MCV 77.2 L MCH 24.5 L MCHC 31.8 L RDW 13.4 Plt Count 310 MPV 8.5 Neut % (Auto) 59.1 Lymph % (Auto) 26.6 [place] % (Auto) 9.1 H Eos % (Auto) 4.1 H Baso % (Auto) 1.1 Neut # (Auto) 4.6 Lymph # (Auto) 2.1 [place] # (Auto) 0.7 Eos # (Auto) 0.3 Baso # (Auto) 0.1 WBC Differential . Differential Comment Auto diff final APTT 40.7 H D Sodium 143 Potassium 3.5 Chloride 108 H Carbon Dioxide 25.8 Anion Gap 9 BUN 13 Creatinine 0.68 Estimated GFR Greater than 89 Random Glucose 84 Calcium 8.8 Phosphorus Magnesium Total Bilirubin AST ALT Alkaline Phosphatase Total Creatine Kinase Troponin I Total Protein Albumin Triglycerides 86 Cholesterol 122 LDL Cholesterol, Calc 57 HDL Cholesterol 47.8 Cholesterol/HDL Ratio 2.55 TSH Free T4 01/24/18 01/24/18 01/24/18 10:10 10:10 10:10 WBC RBC Hgb Hct MCV MCH MCHC RDW Plt Count MPV Neut % (Auto) Lymph % (Auto) [place] % (Auto) Eos % (Auto) Baso % (Auto) Neut # (Auto) Lymph # (Auto) [place] # (Auto) Eos # (Auto) Baso # (Auto) WBC Differential Differential Comment APTT Sodium 140 Potassium 3.3 L Chloride 107 Carbon Dioxide 23.6 Anion Gap 9 BUN 12 Creatinine 0.58 Estimated GFR Greater than 89 Random Glucose 83 Calcium 8.5 Phosphorus 3.3 Magnesium 1.6 Total Bilirubin 0.6 AST 25 ALT 21 Alkaline Phosphatase 56 Total Creatine Kinase Troponin I Total Protein 6.2 L Albumin 3.0 L Triglycerides Cholesterol LDL Cholesterol, Calc HDL Cholesterol Cholesterol/HDL Ratio TSH 1.170 Free T4 1.62 H - Imaging Chest X-Ray 01/23/18 08:43 CONCLUSION: 1. No acute cardiopulmonary disease. - Procedures 01/24/2018 PROCEDURE: Left heart catheterization, left ventriculography, coronary angiography and PCI with bare metal stent of the mid first diagonal artery. INDICATIONS FOR PROCEDURE: Non-STEMI, coronary artery disease. PROCEDURE: The patient was brought to the cardiac catheterization laboratory, prepped and draped in the usual sterile fashion. 10 mL of 1% lidocaine was used to locally anesthetize the right common femoral artery. A 4-Congolese sheath was placed in the right common femoral artery. 4-Congolese JR4 and JL4 catheters were used to perform left and right coronary angiography, left ventriculography. FINDINGS: LV pressures were not obtained as the pressure waveforms were dampened due to obstructed line off the table. The patient had frequent ectopy, so we did left ventriculography and removed the catheter. EF was approximately 55%. The right coronary artery is dominant, has mild disease in the mid-segment up to 20% angiographically. Also, 10-20% disease in the proximal segment. The left main coronary artery is large, probably a 6 mm reference vessel diameter. No significant disease angiographically. Left circumflex vessel has no significant disease angiographically. There is a high obtuse marginal vessel which is a 2.5 mm vessel with no significant obstructive disease. The second obtuse marginal vessel is a 3.5 mm vessel; it comes off the mid to distal AV groove-left circumflex, very tortuous in the mid to distal segment. No significant disease angiographically. The remainder of the AV groove-left circumflex supplies two small distal posterolateral arteries, which are 1 mm vessels with no significant disease angiographically. The LAD is transapical. There is a 40-50% stenosis in the mid-segment. The first diagonal artery is a medium-sized vessel, which has a 95% mid-stenosis. Reference vessel diameter proximally is 3 mm. At the lesion site, it is approximately 2.5 mm. A 6-Congolese sheath was exchanged for a 4-Congolese sheath. The patient's baseline ACT was 143. We gave her 70 units/kg of heparin with an ACT of 273. Used a 6-Congolese XB 3.5 guide, 0.014 Prowater wire to cross the lesion, predilated the lesion with a 2.0/6 Euphora balloon to 3 inflations of up to 8 atmospheres up to 20 seconds. I then deployed a 2.5/8 Integrity stent at the lesion site, 1 inflation at 12 atmospheres for 20 seconds. Note: There was slight under deployment of the distal segment of the stent at 12 atmospheres. I did not feel comfortable further deploying the stent as at that segment of the vessel, the 2.5 stent was slightly oversized. Stenosis went from 95% to 0% with JOSESITO 3 flow. CONCLUSIONS: 1. [id number] myocardial infarction, culprit 95% mid-first diagonal artery stenosis, as detailed above. Otherwise mild to moderate three-vessel coronary artery disease in a right dominant system. 2. Normal left ventricular systolic function, ejection fraction 55%. 3. Recommend aspirin 162 mg daily, Plavix 600 mg p.o. load, then 75 mg a day for 12-15 months. Treat lipids to NCEP guidelines. Beta florinda and ABHAY inhibitors as clinically tolerated. Baltazar Cabrera MD Assessment and Plan - Assessment (1) Uncontrolled hypertension Code(s): I10 - Essential (primary) hypertension Status: Acute (2) Acute non-ST elevation myocardial infarction (NSTEMI) Code(s): I21.4 - Non-ST elevation (NSTEMI) myocardial infarction Status: Acute (3) Hypokalemia Code(s): E87.6 - Hypokalemia Status: Acute - Plan 62-year-old female with uncontrolled/untreated hypertension present with NSTEMI NSTEMI: - Cardiology on board. DW Dr. Cabrera - On heparin drip per protocol - Add beta-florinda and lisinopril. Check lipids - Nitro as needed -Plan for heart catheterization in the morning.--Had stenting done on January [address] Cabrera Uncontrolled/untreated hypertension: BP 230's/110's in the ED -Started on metoprolol 25 mg twice daily and lisinopril 5 mg twice daily. - Clonidine PRN. Follow trend and adjust as needed. Follow labs and blood pressures Hypokalemia: -Replace and monitor. Check mag Hypokalemia again will replace Medical noncompliance since patient's blood pressure was uncontrolled Morbid obesity weight loss recommended GI prophylaxis: Stool softener PRN constipation. DVT PPx: On Heparin Code Status: Full code Discussed Condition With: RN and patient and case management Discharge Planning: Hopefully home in the next 24-48 hours if labs are stable
[2018-01-24] MEDS ORDERED: Potassium Chloride 25 MEQ Effervescent Tablet PO ONE (15:00)
[2018-01-24 16:17] LABS: Hemoglobin A1c 4.7 % (4.3-6.0)
[2018-01-24] MEDS: amLODIPine 5 MG Tablet PO SCH (17:40)
--- NOTE | 2018-01-24 17:41 | ECHRPT ---
Indication: HHD CONCLUSIONS The transthoracic study is normal by two-dimensional, color flow imaging and Doppler interrogation. Normal left ventricular size. Mild concentric left ventricular hypertrophy. No regional wall motion abnormalities are present. EF @ 45% Calcification of the anterior mitral valve leaflet. Aortic valve sclerosis is present. There is trace tricuspid valve regurgitation. Normal estimated pulmonary pressures. BP: / HR: Rhythm: Sinus MEASUREMENTS (Male / Female) Normal Values Technical Quality:Poor 2D ECHO LV Diastolic Diameter PLAX 4.9 cm 4.2 - 5.9 / 3.9 - 5.3 cm LV Systolic Diameter PLAX 3.5 cm IVS Diastolic Thickness 1.2 cm 0.6 - 1.0 / 0.6 - 0.9 cm LVPW Diastolic Thickness 1.2 cm 0.6 - 1.0 / 0.6 - 0.9 cm LV Relative Wall Thickness 0.5 RV Internal Dim ED PLAX 2.3 cm LVOT Diameter 1.8 cm LA Systolic Diameter LX 3.3 cm 3.0 - 4.0 / 2.7 - 3.8 cm M-MODE Aortic Root Diameter MM 2.6 cm LA Systolic Diameter MM 3.3 cm LA Ao Ratio MM 1.3 AV Cusp Separation MM 1.9 cm DOPPLER AV Peak Velocity 119.0 cm/s AV Peak Gradient 5.7 mmHg LVOT Peak Velocity 91.8 cm/s LVOT Peak Gradient 3.4 mmHg AV Area Cont Eq pk 2.0 cm MV Area PHT 2.2 cm Mitral E Point Velocity 58.2 cm/s Mitral A Point Velocity 77.5 cm/s Mitral E to A Ratio 0.8 TR Peak Velocity 200.0 cm/s TR Peak Gradient 16.0 mmHg Right Atrial Pressure 10.0 mmHg Pulmonary Artery Systolic Pressu 26.0 mmHg Right Ventricular Systolic Press 26.0 mmHg PV Peak Velocity 93.7 cm/s PV Peak Gradient 3.5 mmHg FINDINGS LEFT VENTRICLE The left ventricular systolic function is normal with an estimated ejection fraction in the range of 60-65%. Normal left ventricular size. Mild concentric left ventricular hypertrophy. No regional wall motion abnormalities are present. RIGHT VENTRICLE Normal right ventricular size and systolic function. LEFT ATRIUM The left atrial size is normal. RIGHT ATRIUM The right atrial size is normal. ATRIAL SEPTUM Normal atrial septal thickness without atrial level shunting by limited color doppler interrogation. AORTA The aortic root and proximal ascending aorta are normal in size on limited imaging. MITRAL VALVE Structurally normal mitral valve. Calcification of the anterior mitral valve leaflet. AORTIC VALVE Trileaflet aortic valve. Aortic valve sclerosis is present. TRICUSPID VALVE Structurally normal tricuspid valve. There is trace tricuspid valve regurgitation. Normal estimated pulmonary pressures. PULMONARY VALVE No pulmonary valve regurgitation or stenosis. VESSELS The inferior vena cava is normal in size. PERICARDIUM No pericardial effusion. Baltazar Cabrera MD, FACC, [facility] [place] (Electronically Signed) Final Date:24 January 2018 17:40
[2018-01-25] MEDS ORDERED: Ibuprofen 400 MG Tablet PO ONE (05:53)
[2018-01-25] MEDS: Metoprolol Tartrate 25 MG Tablet PO SCH ×2 (08:29→21:10)
[2018-01-25] MEDS: amLODIPine 5 MG Tablet PO SCH (08:29)
[2018-01-25] MEDS: Lisinopril 5 MG Tablet PO SCH ×2 (08:30→21:10)
[2018-01-25 09:40] LABS: Baso # (Auto) 0.1 th/mm3 (0.0-0.2); Baso % (Auto) 0.8 % (0.0-2.0); Eos # (Auto) 0.4 th/mm3 (0.0-0.4); Eos % (Auto) 4.7 % (0.0-4.0); Hematocrit 38.1 % (35.0-46.0); Hemoglobin 12.1 gm/dL (11.6-15.3); Lymph % (Auto) 24.3 % (9.0-44.0); Mean Corpuscular HGB Conc 31.9 % (32.0-36.0); Mean Corpuscular Hemoglobin 24.6 pg (27.0-34.0); Mean Corpuscular Volume 77.2 fL (80.0-100.0); Mean Platelet Volume 8.4 fL (7.0-11.0); Mono # (Auto) 0.6 th/mm3 (0.0-0.9); Mono % (Auto) 7.9 % (0.0-8.0); Neut % (Auto) 62.3 % (16.0-70.0); Platelet Count 346 th/mm3 (150-450); Red Blood Count 4.94 mil/mm3 (4.00-5.30)
[2018-01-25 10:07] LABS: Albumin 3.4 g/dL (3.4-5.0); Anion Gap 10 meq/L (5-15); Aspartate Aminotransferase 30 U/L (15-37); Blood Urea Nitrogen 14 mg/dL (7-18); Calcium 9.1 mg/dL (8.5-10.1); Carbon Dioxide 24.9 meq/L (21.0-32.0); Chloride 107 meq/L (98-107); Glomerular Filtration Rate 88 mL/min (>89); Glucose,Random 131 mg/dL (74-106); Magnesium 1.7 mg/dL (1.5-2.5); Potassium 3.7 meq/L (3.5-5.1); Sodium 142 meq/L (136-145)
[2018-01-25 10:09] LABS: Alanine Aminotransferase 29 U/L (10-53); Cholesterol 127 mg/dL (120-200); Phosphorus 2.8 mg/dL (2.5-4.9)
[2018-01-25 10:11] LABS: Alkaline Phosphatase 68 U/L (45-117); Chol/HDL Ratio 2.62 Ratio; HDL Cholesterol 48.4 mg/dL (40.0-60.0); LDL Cholesterol,Calculated 62 mg/dL (0-99); Total Protein 7.5 g/dL (6.4-8.2); Triglycerides 85 mg/dL (42-150)
[2018-01-25] MEDS ORDERED: Loperamide 2 MG Capsule PO PRN (10:56)
--- NOTE | 2018-01-25 11:35 | P.PNIM ---
Subjective Interval history: 62-year-old female with a medical history significant for hypertension who have not been following with physicians for the past couple of years presented to the hospital with complaints of chest pain. Patient reports the chest pain started around 1 PM yesterday. It has been intermittent since then. This morning she woke up with severe and crushing chest pain which prompted the hospital visit. She also had associated nausea and vomiting this morning after she took an Aleve. She is currently chest pain-free. It is worth noting her blood pressure since arriving to the emergency room has been in the 230s/110's. 8-3 had cardiac catheterization with Dr. Cabrera had a bare-metal stent placed today We will get a.m. labs We will need to go home on aspirin and Plavix and statin We will need to get her blood pressure under better control 8-4 PATIENT STILL TAKING NITRO WILL START IMDUR STILL HAVING CHEST PAIN ON AND OFF DW RN AND PT AM LABS HAVING DIARRHEA IMODIUM HOLD DC TODAY MEDS ADJUSTED Physical Exam Vital signs: Vital Signs 01/24/18 12:00 01/24/18 13:00 01/24/18 14:00 Temperature 98.0 F Pulse Rate 63 76 79 Respiratory Rate 16 Blood Pressure 176/79 H Pulse Oximetry 98 01/24/18 16:00 01/24/18 17:00 01/24/18 18:00 Temperature 98.6 F Pulse Rate 75 77 76 Respiratory Rate 17 Blood Pressure 120/72 Pulse Oximetry 97 01/24/18 19:00 01/24/18 20:00 01/24/18 21:00 Temperature 98.5 F Pulse Rate 83 80 84 Respiratory Rate 16 Blood Pressure 150/86 H Pulse Oximetry 100 01/24/18 22:00 01/24/18 23:00 01/25/18 00:00 Temperature 98.1 F Pulse Rate 76 75 86 Respiratory Rate 16 Blood Pressure 134/76 Pulse Oximetry 99 01/25/18 01:00 01/25/18 02:00 01/25/18 03:00 Temperature Pulse Rate 68 70 73 Respiratory Rate Blood Pressure Pulse Oximetry 01/25/18 04:00 01/25/18 05:00 01/25/18 06:00 Temperature 98.0 F Pulse Rate 71 70 64 Respiratory Rate 14 Blood Pressure 150/87 H Pulse Oximetry 99 01/25/18 07:00 01/25/18 08:00 01/25/18 08:45 Temperature 98.0 F Pulse Rate 65 73 Respiratory Rate 18 18 Blood Pressure 154/91 H Pulse Oximetry 98 01/25/18 09:00 01/25/18 10:00 Temperature Pulse Rate 68 67 Respiratory Rate Blood Pressure Pulse Oximetry Intake & Output 01/24/18 01/25/18 01/25/18 18:59 06:59 18:59 Intake Total 495 / 495 240 / 240 Output Total 400 / 400 200 / 200 Balance 95 / 95 40 / 40 Weight 106.5 kg Intake: IV 255 / 255 Heparin/NS PF Inj 1,000 ML @ 0 5 / 5 mls/hr .ROUTE .STK-MED ONE Rx#: [id number] Heparin/D5W 25,000 U/250 mL 25, 250 / 250 000 unit In 250 ml @ 1,200 UNITS/HR 12 mls/hr IV.CONT TITRATE PRN Rx#:[id number] Oral 240 / 240 240 / 240 Output: Urine 400 / 400 200 / 200 Other: Date of Last Bowel Movement 01/23/18 01/23/18 # Bowel Movements 1 Narrative: GENERAL: Awake alert and oriented times 3 --talkative and cooperative SKIN: Warm and dry. HEAD: Atraumatic. Normocephalic. EYES: Pupils equal and round. No scleral icterus. No injection or drainage. ENT: No nasal bleeding or discharge. Mucous membranes pink and moist. NECK: Trachea midline. No JVD. CARDIOVASCULAR: Regular rate and rhythm. S1-S2 no S3 or S4 RESPIRATORY: No accessory muscle use. Clear to auscultation. Breath sounds equal bilaterally. GASTROINTESTINAL: Abdomen soft, non-tender, nondistended. Hepatic and splenic margins not palpable. Obese MUSCULOSKELETAL: Extremities without clubbing, cyanosis, or edema. No obvious deformities. NEUROLOGICAL: Awake and alert. No obvious cranial nerve deficits. Motor grossly within normal limits. Five out of 5 muscle strength in the arms and legs. Normal speech. PSYCHIATRIC: Appropriate mood and affect; insight and judgment normal. Results - Labs CBC & Chem 7: 01/25/18 08:40 01/25/18 08:40 Laboratory Results - last 24 hr 01/24/18 01/24/18 01/24/18 10:10 10:10 10:10 WBC RBC Hgb Hct MCV MCH MCHC RDW Plt Count MPV Neut % (Auto) Lymph % (Auto) [place] % (Auto) Eos % (Auto) Baso % (Auto) Neut # (Auto) Lymph # (Auto) [place] # (Auto) Eos # (Auto) Baso # (Auto) WBC Differential Differential Comment Sodium 140 Potassium 3.3 L Chloride 107 Carbon Dioxide 23.6 Anion Gap 9 BUN 12 Creatinine 0.58 Estimated GFR Greater than 89 Random Glucose 83 Hemoglobin A1c 4.7 Calcium 8.5 Phosphorus 3.3 Magnesium 1.6 Total Bilirubin 0.6 AST 25 ALT 21 Alkaline Phosphatase 56 Total Protein 6.2 L Albumin 3.0 L Triglycerides Cholesterol LDL Cholesterol, Calc HDL Cholesterol Cholesterol/HDL Ratio TSH Free T4 1.62 H 01/24/18 01/25/18 01/25/18 10:10 08:40 08:40 WBC 8.0 RBC 4.94 Hgb 12.1 Hct 38.1 MCV 77.2 L MCH 24.6 L MCHC 31.9 L RDW 14.0 Plt Count 346 MPV 8.4 Neut % (Auto) 62.3 Lymph % (Auto) 24.3 [place] % (Auto) 7.9 Eos % (Auto) 4.7 H Baso % (Auto) 0.8 Neut # (Auto) 5.0 Lymph # (Auto) 2.0 [place] # (Auto) 0.6 Eos # (Auto) 0.4 Baso # (Auto) 0.1 WBC Differential . Differential Comment Auto diff final Sodium 142 Potassium 3.7 Chloride 107 Carbon Dioxide 24.9 Anion Gap 10 BUN 14 Creatinine 0.80 Estimated GFR 88 L Random Glucose 131 H Hemoglobin A1c Calcium 9.1 Phosphorus 2.8 Magnesium 1.7 Total Bilirubin 0.7 AST 30 ALT 29 Alkaline Phosphatase 68 Total Protein 7.5 D Albumin 3.4 Triglycerides 85 Cholesterol 127 LDL Cholesterol, Calc 62 HDL Cholesterol 48.4 Cholesterol/HDL Ratio 2.62 TSH 1.170 Free T4 - Imaging Chest X-Ray 01/23/18 08:43 CONCLUSION: 1. No acute cardiopulmonary disease. - Procedures 01/24/2018 PROCEDURE: Left heart catheterization, left ventriculography, coronary angiography and PCI with bare metal stent of the mid first diagonal artery. INDICATIONS FOR PROCEDURE: Non-STEMI, coronary artery disease. PROCEDURE: The patient was brought to the cardiac catheterization laboratory, prepped and draped in the usual sterile fashion. 10 mL of 1% lidocaine was used to locally anesthetize the right common femoral artery. A 4-Occitan sheath was placed in the right common femoral artery. 4-Occitan JR4 and JL4 catheters were used to perform left and right coronary angiography, left ventriculography. FINDINGS: LV pressures were not obtained as the pressure waveforms were dampened due to obstructed line off the table. The patient had frequent ectopy, so we did left ventriculography and removed the catheter. EF was approximately 55%. The right coronary artery is dominant, has mild disease in the mid-segment up to 20% angiographically. Also, 10-20% disease in the proximal segment. The left main coronary artery is large, probably a 6 mm reference vessel diameter. No significant disease angiographically. Left circumflex vessel has no significant disease angiographically. There is a high obtuse marginal vessel which is a 2.5 mm vessel with no significant obstructive disease. The second obtuse marginal vessel is a 3.5 mm vessel; it comes off the mid to distal AV groove-left circumflex, very tortuous in the mid to distal segment. No significant disease angiographically. The remainder of the AV groove-left circumflex supplies two small distal posterolateral arteries, which are 1 mm vessels with no significant disease angiographically. The LAD is transapical. There is a 40-50% stenosis in the mid-segment. The first diagonal artery is a medium-sized vessel, which has a 95% mid-stenosis. Reference vessel diameter proximally is 3 mm. At the lesion site, it is approximately 2.5 mm. A 6-Occitan sheath was exchanged for a 4-Occitan sheath. The patient's baseline ACT was 143. We gave her 70 units/kg of heparin with an ACT of 273. Used a 6-Occitan XB 3.5 guide, 0.014 Prowater wire to cross the lesion, predilated the lesion with a 2.0/6 Euphora balloon to 3 inflations of up to 8 atmospheres up to 20 seconds. I then deployed a 2.5/8 Integrity stent at the lesion site, 1 inflation at 12 atmospheres for 20 seconds. Note: There was slight under deployment of the distal segment of the stent at 12 atmospheres. I did not feel comfortable further deploying the stent as at that segment of the vessel, the 2.5 stent was slightly oversized. Stenosis went from 95% to 0% with JOSESITO 3 flow. CONCLUSIONS: 1. Ijy-WE-maxsbtnom myocardial infarction, culprit 95% mid-first diagonal artery stenosis, as detailed above. Otherwise mild to moderate three-vessel coronary artery disease in a right dominant system. 2. Normal left ventricular systolic function, ejection fraction 55%. 3. Recommend aspirin 162 mg daily, Plavix 600 mg p.o. load, then 75 mg a day for 12-15 months. Treat lipids to NCEP guidelines. Beta florinda and ABHAY inhibitors as clinically tolerated. Baltazar Cabrera MD Assessment and Plan - Assessment (1) Uncontrolled hypertension Code(s): I10 - Essential (primary) hypertension Status: Acute (2) Acute non-ST elevation myocardial infarction (NSTEMI) Code(s): I21.4 - Non-ST elevation (NSTEMI) myocardial infarction Status: Acute (3) Hypokalemia Code(s): E87.6 - Hypokalemia Status: Acute - Plan 62-year-old female with uncontrolled/untreated hypertension present with NSTEMI NSTEMI: - Cardiology on board. DW Dr. Cabrera - On heparin drip per protocol - Add beta-florinda and lisinopril. Check lipids - Nitro as needed -Plan for heart catheterization in the morning.--Had stenting done on January [address] Cabrera WILL ADD IMDUR Uncontrolled/untreated hypertension: BP 230's/110's in the ED -Started on metoprolol 50 mg twice daily and lisinopril 10 mg twice daily. ADD NORVASC 5MG - Clonidine PRN. Follow trend and adjust as needed. Follow labs and blood pressures Hypokalemia: -Replace and monitor. Check mag Hypokalemia again will replace Medical noncompliance since patient's blood pressure was uncontrolled Morbid obesity weight loss recommended GI prophylaxis: Stool softener PRN constipation. DIARRHEA START IMODIUM DVT PPx: On Heparin Code Status: FULL CODE Discussed Condition With: RN AND PT Discharge Planning: Hopefully home in the next 24-48 hours if labs are stable AND NO MORE CHEST PAIN START IMDUR
[2018-01-25] MEDS: Isosorbide Mononitrate 30 MG ER 24HR Tablet (Imdur) PO SCH (11:48)
--- NOTE | 2018-01-25 13:04 | P.PNCA ---
Subjective Interval history: patient asleep, tells me she doesnt want to go home due to diarrhea, denies chest pain to me but told Dr Luna she had 8/10 chest pain according to nursing Physical Exam Vital signs: Vital Signs 01/24/18 14:00 01/24/18 16:00 01/24/18 17:00 Temperature 98.6 F Pulse Rate 79 75 77 Respiratory Rate 17 Blood Pressure 120/72 Pulse Oximetry 97 01/24/18 18:00 01/24/18 19:00 01/24/18 20:00 Temperature 98.5 F Pulse Rate 76 83 80 Respiratory Rate 16 Blood Pressure 150/86 H Pulse Oximetry 100 01/24/18 21:00 01/24/18 22:00 01/24/18 23:00 Temperature Pulse Rate 84 76 75 Respiratory Rate Blood Pressure Pulse Oximetry 01/25/18 00:00 01/25/18 01:00 01/25/18 02:00 Temperature 98.1 F Pulse Rate 86 68 70 Respiratory Rate 16 Blood Pressure 134/76 Pulse Oximetry 99 01/25/18 03:00 01/25/18 04:00 01/25/18 05:00 Temperature 98.0 F Pulse Rate 73 71 70 Respiratory Rate 14 Blood Pressure 150/87 H Pulse Oximetry 99 01/25/18 06:00 01/25/18 07:00 01/25/18 08:00 Temperature 98.0 F Pulse Rate 64 65 73 Respiratory Rate 18 Blood Pressure 154/91 H Pulse Oximetry 98 01/25/18 08:45 01/25/18 09:00 01/25/18 10:00 Temperature Pulse Rate 68 67 Respiratory Rate 18 Blood Pressure Pulse Oximetry 01/25/18 11:00 01/25/18 12:00 Temperature 98.1 F Pulse Rate 67 67 Respiratory Rate 18 Blood Pressure 136/78 Pulse Oximetry 99 Intake & Output 01/24/18 01/25/18 01/25/18 18:59 06:59 18:59 Intake Total 495 / 495 240 / 240 Output Total 400 / 400 200 / 200 Balance 95 / 95 40 / 40 Weight 106.5 kg Intake: IV 255 / 255 Heparin/NS PF Inj 1,000 ML @ 0 5 / 5 mls/hr .ROUTE .[facility] Rx#: [id number] Heparin/D5W 25,000 U/250 mL 25, 250 / 250 000 unit In 250 ml @ 1,200 UNITS/HR 12 mls/hr IV.CONT TITRATE PRN Rx#:[id number] Oral 240 / 240 240 / 240 Output: Urine 400 / 400 200 / 200 Other: Date of Last Bowel Movement 01/23/18 01/25/18 # Bowel Movements 1 Assessment and Plan - Assessment (1) CAD (coronary artery disease) Code(s): I25.10 - Atherosclerotic heart disease of [place] coronary artery without angina pectoris Status: Acute (2) Acute non-ST elevation myocardial infarction (NSTEMI) Code(s): I21.4 - Non-ST elevation (NSTEMI) myocardial infarction Status: Acute (3) Hypokalemia Code(s): E87.6 - Hypokalemia Status: Acute (4) Uncontrolled hypertension Code(s): I10 - Essential (primary) hypertension Status: Acute - Plan 1.) POD #1 bms d1, reports chest pain, plan imdur and ternd trop and repeat ekg , continue aspirin, plavix, beta florinda and harinder, ldl=57 so statin held
[2018-01-25 13:25] LABS: Troponin I 0.7 ng/mL (0.02-0.05)
--- NOTE | 2018-01-25 13:49 | ECG ---
Date Performed: 01/25/2018 Time Performed: 05:33:50 PTAGE: 62 years EKG: Sinus rhythm Septal and lateral ST-T changes are nonspecific Borderline ECG Since the PREVIOUS TRACING , no significant change noted PREVIOUS TRACIN01/24/2018 00.06 DOCTOR: Olga Aldana Interpretating Date/Time 01/25/2018 13:47:12
[2018-01-25 20:18] LABS: Troponin I 0.55 ng/mL (0.02-0.05)
[2018-01-26 01:28] LABS: Baso # (Auto) 0.1 th/mm3 (0.0-0.2); Baso % (Auto) 0.9 % (0.0-2.0); Eos # (Auto) 0.5 th/mm3 (0.0-0.4); Eos % (Auto) 4.2 % (0.0-4.0); Hematocrit 35.5 % (35.0-46.0); Hemoglobin 11.2 gm/dL (11.6-15.3); Lymph # (Auto) 3.5 th/mm3 (1.0-4.8); Lymph % (Auto) 31.8 % (9.0-44.0); Mean Corpuscular HGB Conc 31.6 % (32.0-36.0); Mean Corpuscular Hemoglobin 24.3 pg (27.0-34.0); Mean Platelet Volume 7.8 fL (7.0-11.0); Mono # (Auto) 1.1 th/mm3 (0.0-0.9); Mono % (Auto) 9.5 % (0.0-8.0); Neut # (Auto) 5.9 th/mm3 (1.8-7.7); Neut % (Auto) 53.6 % (16.0-70.0); Platelet Count 329 th/mm3 (150-450); Red Blood Count 4.61 mil/mm3 (4.00-5.30); Red Cell Distribution Width 13.7 % (11.6-17.2); White Blood Count 11.1 th/mm3 (4.0-11.0)
[2018-01-26 01:48] LABS: Alanine Aminotransferase 28 U/L (10-53); Albumin 3.2 g/dL (3.4-5.0); Anion Gap 9 meq/L (5-15); Aspartate Aminotransferase 24 U/L (15-37); Blood Urea Nitrogen 15 mg/dL (7-18); Calcium 8.8 mg/dL (8.5-10.1); Carbon Dioxide 26.5 meq/L (21.0-32.0); Chloride 110 meq/L (98-107); Glomerular Filtration Rate Greater Than 89 mL/min (>89); Glucose,Random 87 mg/dL (74-106); Magnesium 1.5 mg/dL (1.5-2.5); Phosphorus 3.7 mg/dL (2.5-4.9); Potassium 3.6 meq/L (3.5-5.1); Sodium 145 meq/L (136-145)
[2018-01-26 01:53] LABS: Alkaline Phosphatase 60 U/L (45-117); Total Protein 6.9 g/dL (6.4-8.2); Troponin I 0.49 ng/mL (0.02-0.05)
[2018-01-26 01:54] LABS: Creatine Kinase 36 U/L (26-192)
[2018-01-26] MEDS: Isosorbide Mononitrate 30 MG ER 24HR Tablet (Imdur) PO SCH (06:04)
[2018-01-26] MEDS: amLODIPine 5 MG Tablet PO SCH (08:15)
[2018-01-26] MEDS: Lisinopril 5 MG Tablet PO SCH (08:15)
[2018-01-26] MEDS: Metoprolol Tartrate 25 MG Tablet PO SCH (08:15)
--- NOTE | 2018-01-26 10:28 | P.PNIM ---
Subjective Interval history: 62-year-old female with a medical history significant for hypertension who have not been following with physicians for the past couple of years presented to the hospital with complaints of chest pain. Patient reports the chest pain started around 1 PM yesterday. It has been intermittent since then. This morning she woke up with severe and crushing chest pain which prompted the hospital visit. She also had associated nausea and vomiting this morning after she took an Aleve. She is currently chest pain-free. It is worth noting her blood pressure since arriving to the emergency room has been in the 230s/110's. 8-3 had cardiac catheterization with Dr. Cabrera had a bare-metal stent placed today We will get a.m. labs We will need to go home on aspirin and Plavix and statin We will need to get her blood pressure under better control 8-4 PATIENT STILL TAKING NITRO WILL START IMDUR STILL HAVING CHEST PAIN ON AND OFF DW RN AND PT AM LABS HAVING DIARRHEA IMODIUM HOLD DC TODAY MEDS ADJUSTED 8-5 DENIES ANY CHEST PAIN TODAY LOOKS COMFORTABLE BLOOD PRESSURE IS MUCH BETTER CONTROLLED WILL DC TO HOME LATER AFTER SEEN BY CARDIOLOGY FOLLOW UP WITH ИВАН AND ELISE Physical Exam Vital signs: Vital Signs 01/25/18 11:00 01/25/18 12:00 01/25/18 13:00 Temperature 98.1 F Pulse Rate 67 67 74 Respiratory Rate 18 Blood Pressure 136/78 Pulse Oximetry 99 01/25/18 14:00 01/25/18 15:00 01/25/18 16:00 Temperature 98.2 F Pulse Rate 72 71 73 Respiratory Rate 18 Blood Pressure 112/59 L Pulse Oximetry 99 01/25/18 17:00 01/25/18 18:00 01/25/18 19:00 Temperature Pulse Rate 82 74 76 Respiratory Rate Blood Pressure Pulse Oximetry 01/25/18 20:00 01/25/18 21:00 01/25/18 22:00 Temperature Pulse Rate 76 76 70 Respiratory Rate 16 Blood Pressure 131/70 130/74 Pulse Oximetry 98 01/25/18 23:00 01/26/18 00:00 01/26/18 01:00 Temperature Pulse Rate 66 68 72 Respiratory Rate 18 Blood Pressure 135/78 Pulse Oximetry 100 01/26/18 02:00 01/26/18 04:00 01/26/18 04:51 Temperature Pulse Rate 70 71 68 Respiratory Rate 18 Blood Pressure Pulse Oximetry 97 01/26/18 05:00 01/26/18 06:00 01/26/18 07:00 Temperature Pulse Rate 86 72 74 Respiratory Rate Blood Pressure Pulse Oximetry 01/26/18 08:00 01/26/18 09:00 01/26/18 10:00 Temperature 98.1 F Pulse Rate 73 71 68 Respiratory Rate 18 Blood Pressure 124/86 Pulse Oximetry 98 Intake & Output 01/25/18 01/26/18 01/26/18 18:59 06:59 18:59 Intake Total 1140 / 1140 240 / 240 Output Total 650 / 650 Balance 1140 / 1140 -410 / -410 Weight 106.5 kg Intake: Oral 1140 / 1140 240 / 240 Output: Urine 650 / 650 Other: # Voids 4 Date of Last Bowel Movement 01/25/18 01/25/18 01/25/18 # Bowel Movements 3 Narrative: GENERAL: Awake alert and oriented times 3 --talkative and cooperative SKIN: Warm and dry. HEAD: Atraumatic. Normocephalic. EYES: Pupils equal and round. No scleral icterus. No injection or drainage. ENT: No nasal bleeding or discharge. Mucous membranes pink and moist. NECK: Trachea midline. No JVD. CARDIOVASCULAR: Regular rate and rhythm. S1-S2 no S3 or S4 RESPIRATORY: No accessory muscle use. Clear to auscultation. Breath sounds equal bilaterally. GASTROINTESTINAL: Abdomen soft, non-tender, nondistended. Hepatic and splenic margins not palpable. Obese MUSCULOSKELETAL: Extremities without clubbing, cyanosis, or edema. No obvious deformities. NEUROLOGICAL: Awake and alert. No obvious cranial nerve deficits. Motor grossly within normal limits. Five out of 5 muscle strength in the arms and legs. Normal speech. PSYCHIATRIC: Appropriate mood and affect; insight and judgment normal. Results - Labs CBC & Chem 7: 01/26/18 01:21 01/26/18 01:21 Laboratory Results - last 24 hr 01/25/18 01/25/18 01/26/18 08:40 19:36 01:21 WBC 11.1 H RBC 4.61 Hgb 11.2 L Hct 35.5 MCV 77.0 L MCH 24.3 L MCHC 31.6 L RDW 13.7 Plt Count 329 MPV 7.8 Neut % (Auto) 53.6 Lymph % (Auto) 31.8 [place] % (Auto) 9.5 H Eos % (Auto) 4.2 H Baso % (Auto) 0.9 Neut # (Auto) 5.9 Lymph # (Auto) 3.5 [place] # (Auto) 1.1 H Eos # (Auto) 0.5 H Baso # (Auto) 0.1 WBC Differential . Differential Comment Auto diff final Sodium Potassium Chloride Carbon Dioxide Anion Gap BUN Creatinine Estimated GFR Random Glucose Calcium Phosphorus Magnesium Total Bilirubin AST ALT Alkaline Phosphatase Total Creatine Kinase 95 38 Troponin I 0.70 H* D 0.55 H D Total Protein Albumin 01/26/18 01:21 WBC RBC Hgb Hct MCV MCH MCHC RDW Plt Count MPV Neut % (Auto) Lymph % (Auto) [place] % (Auto) Eos % (Auto) Baso % (Auto) Neut # (Auto) Lymph # (Auto) [place] # (Auto) Eos # (Auto) Baso # (Auto) WBC Differential Differential Comment Sodium 145 Potassium 3.6 Chloride 110 H Carbon Dioxide 26.5 Anion Gap 9 BUN 15 Creatinine 0.73 Estimated GFR Greater than 89 Random Glucose 87 Calcium 8.8 Phosphorus 3.7 Magnesium 1.5 Total Bilirubin 0.5 AST 24 ALT 28 Alkaline Phosphatase 60 Total Creatine Kinase 36 Troponin I 0.49 H Total Protein 6.9 D Albumin 3.2 L - Imaging Chest X-Ray 01/23/18 08:43 CONCLUSION: 1. No acute cardiopulmonary disease. - Procedures 01/24/2018 PROCEDURE: Left heart catheterization, left ventriculography, coronary angiography and PCI with bare metal stent of the mid first diagonal artery. INDICATIONS FOR PROCEDURE: Non-STEMI, coronary artery disease. PROCEDURE: The patient was brought to the cardiac catheterization laboratory, prepped and draped in the usual sterile fashion. 10 mL of 1% lidocaine was used to locally anesthetize the right common femoral artery. A 4-[place]oz[place] sheath was placed in the right common femoral artery. 4-[place] JR4 and JL4 catheters were used to perform left and right coronary angiography, left ventriculography. FINDINGS: LV pressures were not obtained as the pressure waveforms were dampened due to obstructed line off the table. The patient had frequent ectopy, so we did left ventriculography and removed the catheter. EF was approximately 55%. The right coronary artery is dominant, has mild disease in the mid-segment up to 20% angiographically. Also, 10-20% disease in the proximal segment. The left main coronary artery is large, probably a 6 mm reference vessel diameter. No significant disease angiographically. Left circumflex vessel has no significant disease angiographically. There is a high obtuse marginal vessel which is a 2.5 mm vessel with no significant obstructive disease. The second obtuse marginal vessel is a 3.5 mm vessel; it comes off the mid to distal AV groove-left circumflex, very tortuous in the mid to distal segment. No significant disease angiographically. The remainder of the AV groove-left circumflex supplies two small distal posterolateral arteries, which are 1 mm vessels with no significant disease angiographically. The LAD is transapical. There is a 40-50% stenosis in the mid-segment. The first diagonal artery is a medium-sized vessel, which has a 95% mid-stenosis. Reference vessel diameter proximally is 3 mm. At the lesion site, it is approximately 2.5 mm. A 6-[place] sheath was exchanged for a 4-[place] sheath. The patient's baseline ACT was 143. We gave her 70 units/kg of heparin with an ACT of 273. Used a 6-[place] XB 3.5 guide, 0.014 [place] wire to cross the lesion, predilated the lesion with a 2.0/6 Euphora balloon to 3 inflations of up to 8 atmospheres up to 20 seconds. I then deployed a 2.5/8 Integrity stent at the lesion site, 1 inflation at 12 atmospheres for 20 seconds. Note: There was slight under deployment of the distal segment of the stent at 12 atmospheres. I did not feel comfortable further deploying the stent as at that segment of the vessel, the 2.5 stent was slightly oversized. Stenosis went from 95% to 0% with JOSESITO 3 flow. CONCLUSIONS: 1. Zit-RN-blnanryqa myocardial infarction, culprit 95% mid-first diagonal artery stenosis, as detailed above. Otherwise mild to moderate three-vessel coronary artery disease in a right dominant system. 2. Normal left ventricular systolic function, ejection fraction 55%. 3. Recommend aspirin 162 mg daily, Plavix 600 mg p.o. load, then 75 mg a day for 12-15 months. Treat lipids to NCEP guidelines. Beta florinda and ABHAY inhibitors as clinically tolerated. Baltazar Cabrera MD Assessment and Plan - Assessment (1) Uncontrolled hypertension Code(s): I10 - Essential (primary) hypertension Status: Acute (2) Acute non-ST elevation myocardial infarction (NSTEMI) Code(s): I21.4 - Non-ST elevation (NSTEMI) myocardial infarction Status: Acute (3) Hypokalemia Code(s): E87.6 - Hypokalemia Status: Acute - Plan 62-year-old female with uncontrolled/untreated hypertension present with NSTEMI NSTEMI: - Cardiology on board. DW Dr. Cabrera - On heparin drip per protocol - Add beta-florinda and lisinopril. Check lipids - Nitro as needed -Plan for heart catheterization in the morning.--Had stenting done on January [address] Cabrera WILL ADD IMDUR Uncontrolled/untreated hypertension: BP 230's/110's in the ED -Started on metoprolol 50 mg twice daily and lisinopril 10 mg twice daily. ADD NORVASC 5MG - Clonidine PRN. Follow trend and adjust as needed. Follow labs and blood pressures Hypokalemia: -Replace and monitor. Check mag Hypokalemia again will replace Medical noncompliance since patient's blood pressure was uncontrolled Morbid obesity weight loss recommended GI prophylaxis: Stool softener PRN constipation. DIARRHEA START IMODIUM DVT PPx: On Heparin CAN DC TO HOME TODAY NEEDS TO TAKE MEDICATIONS AND FOLLOW UP K[place]ALL RN AND PT Code Status: FULL CODE Discussed Condition With: RN AND PT AND CARDIOLOGY Discharge Planning: DC TO HOME TODAY
--- NOTE | 2018-01-26 10:39 | P.DS ---
Date of admission: 01/23/18 12:23 Primary care physician: No Primary Care Physician Attending physician on discharge: Bishnu Luna Anticipated date of discharge: 01/26/18 Brief History from admission: 62-year-old female with a medical history significant for hypertension who have not been following with physicians for the past couple of years presented to the hospital with complaints of chest pain. Patient reports the chest pain started around 1 PM yesterday. It has been intermittent since then. This morning she woke up with severe and crushing chest pain which prompted the hospital visit. She also had associated nausea and vomiting this morning after she took an Aleve. She is currently chest pain-free. It is worth noting her blood pressure since arriving to the emergency room has been in the 230s/110's. DS: Diagnosis - Discharge Diagnosis (1) Uncontrolled hypertension Status: Chronic (2) Acute non-ST elevation myocardial infarction (NSTEMI) Status: Acute (3) Hypokalemia Status: Acute (4) Obese Status: Chronic (5) Obesity (BMI 30-39.9) Status: Chronic (6) CAD (coronary artery disease) Status: Acute DS: Medications - Discharge Medications Prescriptions: amlodipine [Norvasc] 5 mg PO DAILY #30 tab aspirin 162 mg PO DAILY #30 tab clopidogrel [Plavix] 75 mg PO DAILY #30 tab isosorbide mononitrate 30 mg PO DAILY@0700 #30 tab lisinopril 10 mg PO BID #120 tab loperamide 2 mg PO Q6H PRN #60 cap PRN Reason: Diarrhea metoprolol tartrate 50 mg PO BID #60 tab nitroglycerin [Nitrostat] 0.4 mg SUBLINGUAL Q5M PRN #100 tab PRN Reason: Chest Pain DS: Summary Hospital Course: 62-year-old female with a medical history significant for hypertension who have not been following with physicians for the past couple of years presented to the hospital with complaints of chest pain. Patient reports the chest pain started around 1 PM yesterday. It has been intermittent since then. This morning she woke up with severe and crushing chest pain which prompted the hospital visit. She also had associated nausea and vomiting this morning after she took an Aleve. She is currently chest pain-free. It is worth noting her blood pressure since arriving to the emergency room has been in the 230s/110's. 8-3 had cardiac catheterization with Dr. Cabrera had a bare-metal stent placed today We will get a.m. labs We will need to go home on aspirin and Plavix and statin We will need to get her blood pressure under better control 01-25 PATIENT STILL TAKING NITRO WILL START IMDUR STILL HAVING CHEST PAIN ON AND OFF DW RN AND PT AM LABS HAVING DIARRHEA IMODIUM HOLD DC TODAY MEDS ADJUSTED 01-26 DENIES ANY CHEST PAIN TODAY LOOKS COMFORTABLE BLOOD PRESSURE IS MUCH BETTER CONTROLLED WILL DC TO HOME LATER AFTER SEEN BY CARDIOLOGY FOLLOW UP WITH ИВАН AND ELISE WAS STENTED ON 01-24 SEE THE REPORT - Time Spent with Patient Total time spent providing and/or coordinating discharge services: Greater than 30 minutes - Quality: VTE Deep Vein Thrombosis/Pulmonary Embolism Present on Admission: No Exam Vital signs: Vital Signs 01/25/18 11:00 01/25/18 12:00 01/25/18 13:00 Temperature 98.1 F Pulse Rate 67 67 74 Respiratory Rate 18 Blood Pressure 136/78 Pulse Oximetry 99 01/25/18 14:00 01/25/18 15:00 01/25/18 16:00 Temperature 98.2 F Pulse Rate 72 71 73 Respiratory Rate 18 Blood Pressure 112/59 L Pulse Oximetry 99 01/25/18 17:00 01/25/18 18:00 01/25/18 19:00 Temperature Pulse Rate 82 74 76 Respiratory Rate Blood Pressure Pulse Oximetry 01/25/18 20:00 01/25/18 21:00 01/25/18 22:00 Temperature Pulse Rate 76 76 70 Respiratory Rate 16 Blood Pressure 131/70 130/74 Pulse Oximetry 98 01/25/18 23:00 01/26/18 00:00 01/26/18 01:00 Temperature Pulse Rate 66 68 72 Respiratory Rate 18 Blood Pressure 135/78 Pulse Oximetry 100 01/26/18 02:00 01/26/18 04:00 01/26/18 04:51 Temperature Pulse Rate 70 71 68 Respiratory Rate 18 Blood Pressure Pulse Oximetry 97 01/26/18 05:00 01/26/18 06:00 01/26/18 07:00 Temperature Pulse Rate 86 72 74 Respiratory Rate Blood Pressure Pulse Oximetry 01/26/18 08:00 01/26/18 09:00 01/26/18 10:00 Temperature 98.1 F Pulse Rate 73 71 68 Respiratory Rate 18 Blood Pressure 124/86 Pulse Oximetry 98 Intake & Output 01/25/18 01/26/18 01/26/18 18:59 06:59 18:59 Intake Total 1140 / 1140 240 / 240 Output Total 650 / 650 Balance 1140 / 1140 -410 / -410 Weight 106.5 kg Intake: Oral 1140 / 1140 240 / 240 Output: Urine 650 / 650 Other: # Voids 4 Date of Last Bowel Movement 01/25/18 01/25/18 01/25/18 # Bowel Movements 3 Narrative: GENERAL: Awake alert and oriented times 3 --talkative and cooperative SKIN: Warm and dry. HEAD: Atraumatic. Normocephalic. EYES: Pupils equal and round. No scleral icterus. No injection or drainage. ENT: No nasal bleeding or discharge. Mucous membranes pink and moist. NECK: Trachea midline. No JVD. CARDIOVASCULAR: Regular rate and rhythm. S1-S2 no S3 or S4 RESPIRATORY: No accessory muscle use. Clear to auscultation. Breath sounds equal bilaterally. GASTROINTESTINAL: Abdomen soft, non-tender, nondistended. Hepatic and splenic margins not palpable. Obese MUSCULOSKELETAL: Extremities without clubbing, cyanosis, or edema. No obvious deformities. NEUROLOGICAL: Awake and alert. No obvious cranial nerve deficits. Motor grossly within normal limits. Five out of 5 muscle strength in the arms and legs. Normal speech. PSYCHIATRIC: Appropriate mood and affect; insight and judgment normal. Results Procedures completed during hospitalization: 01/24/2018 PROCEDURE: Left heart catheterization, left ventriculography, coronary angiography and PCI with bare metal stent of the mid first diagonal artery. INDICATIONS FOR PROCEDURE: Non-STEMI, coronary artery disease. PROCEDURE: The patient was brought to the cardiac catheterization laboratory, prepped and draped in the usual sterile fashion. 10 mL of 1% lidocaine was used to locally anesthetize the right common femoral artery. A 4-Mauritian sheath was placed in the right common femoral artery. 4-Mauritian JR4 and JL4 catheters were used to perform left and right coronary angiography, left ventriculography. FINDINGS: LV pressures were not obtained as the pressure waveforms were dampened due to obstructed line off the table. The patient had frequent ectopy, so we did left ventriculography and removed the catheter. EF was approximately 55%. The right coronary artery is dominant, has mild disease in the mid-segment up to 20% angiographically. Also, 10-20% disease in the proximal segment. The left main coronary artery is large, probably a 6 mm reference vessel diameter. No significant disease angiographically. Left circumflex vessel has no significant disease angiographically. There is a high obtuse marginal vessel which is a 2.5 mm vessel with no significant obstructive disease. The second obtuse marginal vessel is a 3.5 mm vessel; it comes off the mid to distal AV groove-left circumflex, very tortuous in the mid to distal segment. No significant disease angiographically. The remainder of the AV groove-left circumflex supplies two small distal posterolateral arteries, which are 1 mm vessels with no significant disease angiographically. The LAD is transapical. There is a 40-50% stenosis in the mid-segment. The first diagonal artery is a medium-sized vessel, which has a 95% mid-stenosis. Reference vessel diameter proximally is 3 mm. At the lesion site, it is approximately 2.5 mm. A 6-Mauritian sheath was exchanged for a 4-Mauritian sheath. The patient's baseline ACT was 143. We gave her 70 units/kg of heparin with an ACT of 273. Used a 6-Mauritian XB 3.5 guide, 0.014 [place] wire to cross the lesion, predilated the lesion with a 2.0/6 Euphora balloon to 3 inflations of up to 8 atmospheres up to 20 seconds. I then deployed a 2.5/8 Integrity stent at the lesion site, 1 inflation at 12 atmospheres for 20 seconds. Note: There was slight under deployment of the distal segment of the stent at 12 atmospheres. I did not feel comfortable further deploying the stent as at that segment of the vessel, the 2.5 stent was slightly oversized. Stenosis went from 95% to 0% with JOSESITO 3 flow. CONCLUSIONS: 1. [id number] myocardial infarction, culprit 95% mid-first diagonal artery stenosis, as detailed above. Otherwise mild to moderate three-vessel coronary artery disease in a right dominant system. 2. Normal left ventricular systolic function, ejection fraction 55%. 3. Recommend aspirin 162 mg daily, Plavix 600 mg p.o. load, then 75 mg a day for 12-15 months. Treat lipids to NCEP guidelines. Beta florinda and ABHAY inhibitors as clinically tolerated. Baltazar Cabrera MD Completed studies during hospitalization: Laboratory Results WBC 11.1 th/mm3 (4.0-11.0) H 01/26/18 01:21 RBC 4.61 mil/mm3 (4.00-5.30) 01/26/18 01:21 Hgb 11.2 gm/dL (11.6-15.3) L 01/26/18 01:21 Hct 35.5 % (35.0-46.0) 01/26/18 01:21 MCV 77.0 fL (80.0-100.0) L 01/26/18 01:21 MCH 24.3 pg (27.0-34.0) L 01/26/18 01:21 MCHC 31.6 % (32.0-36.0) L 01/26/18 01:21 RDW 13.7 % (11.6-17.2) 01/26/18 01:21 Plt Count 329 th/mm3 (150-450) 01/26/18 01:21 MPV 7.8 fL (7.0-11.0) 01/26/18 01:21 Neut % (Auto) 53.6 % (16.0-70.0) 01/26/18 01:21 Lymph % (Auto) 31.8 % (9.0-44.0) 01/26/18 01:21 [place] % (Auto) 9.5 % (0.0-8.0) H 01/26/18 01:21 Eos % (Auto) 4.2 % (0.0-4.0) H 01/26/18 01:21 Baso % (Auto) 0.9 % (0.0-2.0) 01/26/18 01:21 Neut # (Auto) 5.9 th/mm3 (1.8-7.7) 01/26/18 01:21 Lymph # (Auto) 3.5 th/mm3 (1.0-4.8) 01/26/18 01:21 [place] # (Auto) 1.1 th/mm3 (0.0-0.9) H 01/26/18 01:21 Eos # (Auto) 0.5 th/mm3 (0.0-0.4) H 01/26/18 01:21 Baso # (Auto) 0.1 th/mm3 (0.0-0.2) 01/26/18 01:21 WBC Differential . 01/26/18 01:21 Differential Comment Auto diff final 01/26/18 01:21 PT 10.1 sec (9.8-11.6) 01/23/18 09:00 INR 1.0 Ratio 01/23/18 09:00 APTT 40.7 sec (24.3-30.1) H D 01/24/18 09:09 Sodium 145 meq/L (136-145) 01/26/18 01:21 Potassium 3.6 meq/L (3.5-5.1) 01/26/18 01:21 Chloride 110 meq/L (98-107) H 01/26/18 01:21 Carbon Dioxide 26.5 meq/L (21.0-32.0) 01/26/18 01:21 Anion Gap 9 meq/L (5-15) 01/26/18 01:21 BUN 15 mg/dL (7-18) 01/26/18 01:21 Creatinine 0.73 mg/dL (0.50-1.00) 01/26/18 01:21 Estimated GFR Greater than 89 mL/min (>89) 01/26/18 01:21 Random Glucose 87 mg/dL (74-106) 01/26/18 01:21 Hemoglobin A1c 4.7 % (4.3-6.0) 01/24/18 10:10 Calcium 8.8 mg/dL (8.5-10.1) 01/26/18 01:21 Phosphorus 3.7 mg/dL (2.5-4.9) 01/26/18 01:21 Magnesium 1.5 mg/dL (1.5-2.5) 01/26/18 01:21 Total Bilirubin 0.5 mg/dL (0.2-1.0) 01/26/18 01:21 AST 24 U/L (15-37) 01/26/18 01:21 ALT 28 U/L (10-53) 01/26/18 01:21 Alkaline Phosphatase 60 U/L (45-117) 01/26/18 01:21 Total Creatine Kinase 36 U/L (26-192) 01/26/18 01:21 Troponin I 0.49 ng/mL (0.02-0.05) H 01/26/18 01:21 Total Protein 6.9 g/dL (6.4-8.2) D 01/26/18 01:21 Albumin 3.2 g/dL (3.4-5.0) L 01/26/18 01:21 Triglycerides 85 mg/dL (42-150) 01/25/18 08:40 Cholesterol 127 mg/dL (120-200) 01/25/18 08:40 LDL Cholesterol, Calc 62 mg/dL (0-99) 01/25/18 08:40 HDL Cholesterol 48.4 mg/dL (40.0-60.0) 01/25/18 08:40 Cholesterol/HDL Ratio 2.62 Ratio 01/25/18 08:40 TSH 1.170 uIU/mL (0.358-3.740) 01/24/18 10:10 Free T4 1.62 ng/dL (0.76-1.46) H 01/24/18 10:10 Impressions Chest X-Ray 01/23/18 08:43 CONCLUSION: 1. No acute cardiopulmonary disease. Labs on day of discharge: Labs from last 24 hours 01/26/18 01/26/18 01/25/18 01:21 01:21 19:36 WBC 11.1 H RBC 4.61 Hgb 11.2 L Hct 35.5 MCV 77.0 L MCH 24.3 L MCHC 31.6 L RDW 13.7 Plt Count 329 MPV 7.8 Neut % (Auto) 53.6 Lymph % (Auto) 31.8 [place] % (Auto) 9.5 H Eos % (Auto) 4.2 H Baso % (Auto) 0.9 Neut # (Auto) 5.9 Lymph # (Auto) 3.5 [place] # (Auto) 1.1 H Eos # (Auto) 0.5 H Baso # (Auto) 0.1 WBC Differential . Differential Comment Auto diff final Sodium 145 Potassium 3.6 Chloride 110 H Carbon Dioxide 26.5 Anion Gap 9 BUN 15 Creatinine 0.73 Estimated GFR Greater than 89 Random Glucose 87 Calcium 8.8 Phosphorus 3.7 Magnesium 1.5 Total Bilirubin 0.5 AST 24 ALT 28 Alkaline Phosphatase 60 Total Creatine Kinase 36 38 Troponin I 0.49 H 0.55 H D Total Protein 6.9 D Albumin 3.2 L 01/25/18 08:40 WBC RBC Hgb Hct MCV MCH MCHC RDW Plt Count MPV Neut % (Auto) Lymph % (Auto) [place] % (Auto) Eos % (Auto) Baso % (Auto) Neut # (Auto) Lymph # (Auto) [place] # (Auto) Eos # (Auto) Baso # (Auto) WBC Differential Differential Comment Sodium Potassium Chloride Carbon Dioxide Anion Gap BUN Creatinine Estimated GFR Random Glucose Calcium Phosphorus Magnesium Total Bilirubin AST ALT Alkaline Phosphatase Total Creatine Kinase 95 Troponin I 0.70 H* D Total Protein Albumin - Impressions ITS Impressions Chest X-Ray 01/23/18 08:43 CONCLUSION: 1. No acute cardiopulmonary disease. Discharge Plan - Discharge Disposition Patient Disposition: 01 Discharge Home - Discharge Condition Condition: Good - Discharge Order Discharge Orders: Discharge Order (Routine); Ordered 01/26/18 Ordered By: Bishnu Luna - Discharge Details Anticipated Discharge Date: 01/26/18 Discharge Comment: DC TO HOME - Physicians Team Primary Care Provider: Primary Care Luis Fernando,Laurie Attending Provider: Bishnu Luna Other Providers: Baltazar Cabrera MD
--- NOTE | 2018-01-26 11:28 | P.PNCA ---
Subjective Interval history: assymptomatic Physical Exam Vital signs: Vital Signs 01/25/18 12:00 01/25/18 13:00 01/25/18 14:00 Temperature 98.1 F Pulse Rate 67 74 72 Respiratory Rate 18 Blood Pressure 136/78 Pulse Oximetry 99 01/25/18 15:00 01/25/18 16:00 01/25/18 17:00 Temperature 98.2 F Pulse Rate 71 73 82 Respiratory Rate 18 Blood Pressure 112/59 L Pulse Oximetry 99 01/25/18 18:00 01/25/18 19:00 01/25/18 20:00 Temperature Pulse Rate 74 76 76 Respiratory Rate 16 Blood Pressure 131/70 Pulse Oximetry 98 01/25/18 21:00 01/25/18 22:00 01/25/18 23:00 Temperature Pulse Rate 76 70 66 Respiratory Rate Blood Pressure 130/74 Pulse Oximetry 01/26/18 00:00 01/26/18 01:00 01/26/18 02:00 Temperature Pulse Rate 68 72 70 Respiratory Rate 18 Blood Pressure 135/78 Pulse Oximetry 100 01/26/18 04:00 01/26/18 04:51 01/26/18 05:00 Temperature Pulse Rate 71 68 86 Respiratory Rate 18 Blood Pressure Pulse Oximetry 97 01/26/18 06:00 01/26/18 07:00 01/26/18 08:00 Temperature 98.1 F Pulse Rate 72 74 73 Respiratory Rate 18 Blood Pressure 124/86 Pulse Oximetry 98 01/26/18 09:00 01/26/18 10:00 Temperature Pulse Rate 71 68 Respiratory Rate Blood Pressure Pulse Oximetry Intake & Output 01/25/18 01/26/18 01/26/18 18:59 06:59 18:59 Intake Total 1140 / 1140 240 / 240 Output Total 650 / 650 Balance 1140 / 1140 -410 / -410 Weight 106.5 kg Intake: Oral 1140 / 1140 240 / 240 Output: Urine 650 / 650 Other: # Voids 4 Date of Last Bowel Movement 01/25/18 01/25/18 01/25/18 # Bowel Movements 3 Assessment and Plan - Assessment (1) CAD (coronary artery disease) Code(s): I25.10 - Atherosclerotic heart disease of [place] coronary artery without angina pectoris Status: Acute (2) Acute non-ST elevation myocardial infarction (NSTEMI) Code(s): I21.4 - Non-ST elevation (NSTEMI) myocardial infarction Status: Acute (3) Hypokalemia Code(s): E87.6 - Hypokalemia Status: Acute (4) Uncontrolled hypertension Code(s): I10 - Essential (primary) hypertension Status: Chronic - Plan 1.) POD #2 bms d1, assymptomatic, trop trending down repeat ekg wnl, continue aspirin, plavix, beta florinda and harinder, ldl=57 so statin held, d/w Dr Luna
--- NOTE | 2018-01-26 17:39 | ECG ---
Date Performed: 01/25/2018 Time Performed: 12:46:28 PTAGE: 62 years EKG: Sinus rhythm Normal ECG Since the PREVIOUS TRACING , no significant change noted PREVIOUS TRACIN01/25/2018 05.33 DOCTOR: Olga Aldana Interpretating Date/Time 01/26/2018 17:37:27
== END 2018-01-26 11:44 | disposition home or self-care (01) ==
LOC: NEPE 08:36 → NEDA 12:23 → NEDH 16:30 → HCIS 20:35
PROVIDERS: ADMIT Hospitalist; ATTEND Hospitalist